=== PATIENT | male | born 1935 | race Caucasian/White ===

== ENCOUNTER 2016-07-29 14:21 | Observation (INO) | payer OTHER ==
[~2016-07-29] VITALS: Ht 167.6 cm; Wt 74.8 kg
[~2016-07-29 14:21] MED LIST: NAPROXEN500 M2 PO
[2016-07-29] MEDS ORDERED: LISINOPRIL20 M1 PO (14:29)
[2016-07-29] MEDS ORDERED: PANTOPRAZOLE SO40 M1 PO (14:30)
[2016-07-29] MEDS ORDERED: AMLODIPINE BESY10 M1 PO (14:30)
--- NOTE | 2016-07-29 14:30 | NUR ---
PT WHEELED FROM GI SUITE FOR CHEST PAIN. PT STATES PAIN STARTS ON RIGHT SIDE AND GOES ACROSS HIS CHEST TO HIS BACK. PT REPORTS PAIN 3/10. STATES IT IS "UNCOMFORTABLE". PT DENIES SHORTNESS OF BREATH. PT REPORTS PAIN IS WORSE AT NIGHT AFTER EATING DINNER.
--- NOTE | 2016-07-29 14:30 | NUR ---
DR HOFF AT BEDSIDE FOR EVAL
--- NOTE | 2016-07-29 14:31 | ED CARDIAC/CP/PALPITATIONS ---
History of Present Illness General Chief Complaint: Chest Pain Stated Complaint: CHEST PAIN Source: patient, family, dR. Chambers Exam Limitations: no limitations Allergies Coded Allergies: Penicillins (UNKNOWN 07/29/16) Reconcile Medications Amlodipine Besylate 10 MG TABLET 1 TAB PO DAILY HEART (Reported) Lisinopril 20 MG TABLET 1 TAB PO DAILY HEART (Reported) Pantoprazole Sodium 40 MG TABLET.DR 1 TAB PO DAILY GI (Reported) Triage Nurses Notes Reviewed? yes Onset: Abrupt Duration: day(s): (10) Timing: multiple episodes today Quality/Severity: moderate Location: RIGHT SIDED Radiation: LEFT CHEST Activities at Onset: none Aspirin Today: PLAVIX DAILY HPI: This is an 80-year-old male with history of hypertension, previous PE and acid reflux presents to the ER from the GI suite for evaluation of chest pain. Patient was due to have a colonoscopy and endoscopy today. He mentioned to them he has been having ongoing chest pain for the past 10 days and he was seen by Dr. Chambers. The decision was made secondary to inferior EKG changes to come to the ER for evaluation. Patient was due to have outpatient cardiology evaluation by Dr. Flores. (KAVYA SOTO,[facility]) Vital Signs & Intake/Output Vital Signs & Intake/Output Vital Signs Date Time Temp Pulse Resp B/P Pulse O2 O2 Flow FiO2 Ox Delivery Rate 07/30 0825 97.5 59 18 135/76 93 Room Air 07/29 2357 96.9 56 18 118/67 92 Room Air 07/29 2106 98.0 80 18 103/60 96 Room Air 07/29 1854 98.0 80 18 100/58 96 Room Air 07/29 1735 97.0 83 18 101/57 95 Room Air 07/29 1633 60 18 142/74 96 Room Air 07/29 1435 Room Air 07/29 1426 94.6 63 16 147/79 94 Room Air ED Intake and Output 07/30 0000 07/29 1200 Intake Total 750 Output Total Balance 750 Intake, IV 500 Intake, Oral 250 Number 0 Bowel Movements Patient 165 lb Weight Past History Medical History Any Pertinent Medical History? see below for history Neurological: NONE EENT: NONE Cardiovascular: hypertension Respiratory: NONE Gastrointestinal: NONE Hepatic: NONE Renal: NONE Musculoskeletal: NONE Psychiatric: NONE Endocrine: NONE Blood Disorders: NONE Cancer(s): NONE AUTHORIZER/Reproductive: NONE Surgical History Surgical History: non-contributory Psychosocial History What is your primary language Sami Family History Hx Contributory? No (OSIRIS HOFF MD) Review of Systems Review of Systems Constitutional: Denies: chills, fever. EENTM: Reports: no symptoms. Respiratory: Denies: cough, short of breath. Cardiovascular: Reports: chest pain. Denies: palpitations. GI: Denies: abdominal pain. Genitourinary: Reports: no symptoms. Musculoskeletal: Reports: no symptoms. Skin: Reports: no symptoms. Neurological/Psychological: Reports: no symptoms. Hematologic/Endocrine: Denies: bruising, bleeding, polyuria, polydipsia. Immunologic/Allergic: Denies: splenectomy. All Other Systems: Reviewed and Negative (OSIRIS HOFF MD) Physical Exam Physical Exam General Appearance: well developed/nourished, alert, awake, anxious Head: atraumatic, normal appearance Eyes: Bilateral: normal appearance, PERRL, EOMI. Ears, Nose, Throat: normal pharynx, hearing grossly normal Neck: normal inspection, supple, full range of motion Respiratory: normal breath sounds, chest non-tender, no respiratory distress Cardiovascular: regular rate/rhythm Peripheral Pulses: 2+ radial (R), 2+ radial (L) Gastrointestinal: normal bowel sounds, soft, non-tender Extremities: normal inspection, normal range of motion, no edema Neurologic/Psych: no motor/sensory deficits, awake, alert, oriented x 3 Skin: intact, normal color, warm/dry Core Measures ACS in differential dx? Yes Severe Sepsis Present: No Septic Shock Present: No (OSIRIS HOFF MD) Progress Differential Diagnosis: AMI, unstable angina Diagnostic Imaging: Viewed by Me: CT Scan. Discussed w/RAD: CT Scan. Initial ED EKG: NSR, abnormal Q waves (INFERIOR LEADS) Hand-Off Endorsed To: KRISTOPHER WALKER DO Endorsed Time: 1509 Pending: CT, consult (denisse) (OSIRIS HOFF MD) Plan of Care: Orders Procedure Date/time Status Nothing by Mouth 07/30 B Active ECHOCARDIOGRAM 07/30 0800 Active Change service to 07/30 0637 Active TROPONIN LEVEL 07/30 0500 Complete CBC WITHOUT DIFFERENTIAL 07/30 0500 Complete BASIC ELECTROLYTES PLUS BUN&CR 07/30 0500 Complete EKG 07/30 0500 Active TROPONIN LEVEL 07/29 2300 Complete EKG 07/29 2300 Active Pathway - chart 07/29 2252 Active Pathway - chart 07/29 2251 Active House Staff 07/29 2251 Active Patient Data 07/29 225 Active Code Status 07/29 2251 Active Teach/Educate 07/29 221 Active Nutritional Intake, Monitor 07/29 2213 Active Isolation 07/29 2213 Active Patient Care Conference 07/29 2213 Active Activity/Ambulation 07/29 2213 Active Lab Add-on Test 07/29 2207 Active Patient Data 07/[address] in observation 07/[address] in observation 07/29 1717 Active Vital Signs 07/29 171 Active Code Status 07/29 1717 Complete Intake & Output 07/29 1527 Active THYROID STIMULATING HORMONE 07/29 1439 Complete MAGNESIUM 07/29 1439 Complete GLYCOSYLATED HGB 07/29 1439 Active FREE T4 07/29 1439 Complete Telemetry/Social Work Assistant 07/29 1430 Active TROPONIN LEVEL 07/29 1430 Complete PARTIAL THROMBOPLASTIN TIME 07/29 1430 Complete PROTHROMBIN TIME 07/29 1430 Complete D-DIMER 07/29 1430 Complete COMPREHENSIVE METABOLIC PANEL 07/29 1430 Complete CBC WITHOUT DIFFERENTIAL 07/29 1430 Complete EKG 07/29 1430 Active VTE Mechanical Prophylaxis 07/29 UNK Active Telemetry/Social Work Assistant 07/29 UNK Active Current Medications Sig/Ham Start time Last Medication Dose Stop Time Status Admin Enoxaparin Sodium 40 MG DAILY 07/30 1015 UNVr (Lovenox) Lisinopril 20 MG DAILY 07/30 1000 CAN (Prinivil) Acetaminophen 650 MG Q6P PRN 07/29 2300 AC (Tylenol) Oxycodone/ 1 TAB Q6P PRN 07/29 2300 AC Acetaminophen (Percocet) Oxycodone/ 2 TAB Q6P PRN 07/29 2300 AC Acetaminophen (Percocet) Laboratory Tests 07/30/16 0458: Anion Gap 11, Estimated GFR > 60, BUN/Creatinine Ratio 22.5, Troponin I < 0.01, CBC w Diff NO MAN DIFF REQ, RBC 5.98, MCV 88.1, MCH 29.4, RDW 16.3 H, MPV 8.7, Gran % 66.8, Lymphocytes % 21.9, Monocytes % 7.4, Eosinophils % 3.1, Basophils % 0.8, Absolute Granulocytes 7.3 H, Absolute Lymphocytes 2.4, Absolute Monocytes 0.8 H, Absolute Eosinophils 0.3, Absolute Basophils 0.1, PUBS MCHC 33.4 07/29/16 2305: Troponin I < 0.01 07/29/16 1439: Hemoglobin A1c Pending 07/29/16 1439: Anion Gap 13, Estimated GFR > 60, BUN/Creatinine Ratio 23.8, Glucose 110 H, Calcium 8.9, Magnesium 2.2, Total Bilirubin 0.9, AST 17, ALT 28, Alkaline Phosphatase 106, Troponin I < 0.01, Total Protein 6.9, Albumin 3.9, Globulin 3.0 , Albumin/Globulin Ratio 1.3, TSH 1.040, Free T4 1.40, PT 13.1 H, INR 1.25 H, APTT 34, D-Dimer 254 H, CBC w Diff NO MAN DIFF REQ, RBC 6.20 H, MCV 87.3, MCH 29.4, RDW 16.0 H, MPV 8.1, Gran % 69.0, Lymphocytes % 21.3, Monocytes % 6.7, Eosinophils % 1.9, Basophils % 1.1, Absolute Granulocytes 8.1 H, Absolute Lymphocytes 2.5, Absolute Monocytes 0.8 H, Absolute Eosinophils 0.2, Absolute Basophils 0.1, PUBS MCHC 33.6 Departure Departure Disposition: STILL A PATIENT Condition: Stable Clinical Impression Primary Impression: Chest pain at rest Referrals: RICK DOWELL MD (PCP/Family) Departure Forms: Customer Survey General Discharge Information (OSIRIS HOFF MD) Departure Comments 07/29/16 4 PM PATIENT SIGNED OUT TO ME. Observation Note Spoke With: ANTHONY DOBBS MD Physician Advisor Notified: ZINA SOTO,CJ Maritnez Rationale for Observation: My rational for observation is as follows [serial troponins, serial EKG, inpatient stress test. Dr. Chambers was informed and will set up]. (KRISTOPHER WALKER DO) Critical Care Note Critical Care Note Critical Care Time: 30-74 min (OSIRIS HOFF MD)
[2016-07-29 14:50] LABS: ABSOLUTE BASOPHIL COUNT 0.1 /CUMM (0.0-0.2); ABSOLUTE EOSINOPHIL COUNT 0.2 /CUMM (0.0-0.7); ABSOLUTE GRANULOCYTE CT 8.1 /CUMM (1.4-6.5); ABSOLUTE LYMPH COUNT 2.5 /CUMM (1.2-3.4); ABSOLUTE MONOCYTE COUNT 0.8 /CUMM (0.10-0.60); BASOPHIL % 1.1 % (0.0-2.0); EOSINOPHIL % 1.9 % (0-5); HEMATOCRIT 54.1 % (42-52); MEAN CORPUSCULAR HGB 29.4 PG (27.0-31.0); MEAN CORPUSCULAR HGB CONC 33.6 G/DL (33.0-37.0); MEAN CORPUSCULAR VOLUME 87.3 FL (80.0-94.0); MEAN PLATELET VOLUME 8.1 FL (7.4-10.4); PLATELET COUNT 322 /CUMM (130-400); WHITE BLOOD CELL COUNT 11.7 /CUMM (4.8-10.8)
[2016-07-29 14:59] LABS: PT 13.1 SEC (9.4-12.5); PTT 34 SEC (25-37)
--- NOTE | 2016-07-29 15:09 | NUR ---
NS 500ML STARTED PER MAR
--- NOTE | 2016-07-29 15:35 | NUR ---
PT TO CAT SCAN
--- NOTE | 2016-07-29 15:58 | NUR ---
PT RETURNED FROM CAT SCAN
--- NOTE | 2016-07-29 16:19 | CT SCAN REPORT ---
EXAMINATION: CT ANGIOGRAM OF THE CHEST WITH AND WITHOUT CONTRAST (CT PULMONARY ANGIOGRAM FOR PE) CLINICAL INFORMATION: Chest pain for 10 days. History of lung nodules. COMPARISON: CT chest 04/24/2015. . CT of chest 11/23/2013 06/04/2013 TECHNIQUE: Prior to contrast administration, noncontrast localization images were obtained. Subsequently, multidetector volumetric imaging was performed from the thoracic inlet to below the diaphragms following the administration of 76 mL Optiray 320 intravenous contrast. No contrast reaction reported Sagittal, coronal, and MIP oblique sagittal reformatted images were obtained on the CT workstation, uploaded to PACS, and reviewed. Total exam dose-length product 422.04 mGy-cm FINDINGS: QUALITY OF STUDY/CONTRAST BOLUS: Satisfactory. PULMONARY ARTERIES: No central or segmental pulmonary emboli. THORACIC AORTA: No aneurysm or dissection. LUNG: No acute change of chest. No acute infiltrate. No bronchiectasis. No interstitial or reticular opacity. The central bronchial airways are open. Follow-up lung nodules: 1. There is a small peripheral groundglass opacity in the left upper lobe, image 133 (2). This is chronic unchanged since CAT scan of 06/14/2013. 2. There is a 7 mm area of focal pleural thickening of the minor fissure image 234 (2). This is unchanged since CAT scan of 06/14/2013. 3. 5 mm nodule at the left lung base at the posterior left costophrenic angle is stable image 332 (2). 4. Stable scarring at the anterior basal right middle lobe, axial image 279 (2). No new lung nodule. PLEURA: No pleural effusion or pneumothorax. MEDIASTINUM: Normal heart size. No pericardial effusion. No hilar or mediastinal lymphadenopathy. No evidence of septal bowing or right heart strain. CHEST WALL/AXILLA: No axillary or internal mammary lymphadenopathy. OSSEOUS STRUCTURES: Multilevel degenerative change of the spine with bridging osteophytes of the vertebrae. UPPER ABDOMEN: 2 small hypodense gallstones in the gallbladder. Image 59/59 (4). No reflux of contrast into the hepatic veins to suggest elevated right heart pressures. IMPRESSION: 1. No evidence of pulmonary embolism. 2. Stable lung nodules since CAT scan of 06/14/2013, benign finding. No further follow-up suggested for the nodules. No acute change of the chest. VTE: negative
--- NOTE | 2016-07-29 16:36 | NUR ---
MEDICATED PT WITH ASPIRIN 325MG PO
--- NOTE | 2016-07-29 17:30 | NUR ---
PT LYING ON STRETCHER WATCHING TV WITH AT BEDSIDE. PT WAS ADVISED THAT HE WOULD BE HELD OVER FOR OBSERVATION MARYELLEN
--- NOTE | 2016-07-29 18:44 | NUR ---
PT LYING ON STRETCHER IN [employer] SPIRITS, WATCHING TV. PT ASKING WHEN HE WOULD BE GOING UPSTAIRS. NO COMPLAINTS AT THIS TIME.
--- NOTE | 2016-07-29 18:53 | Cons- Cardiology ---
General Information and HPI Consulting Request Date of Consult: 07/29/16 Requested By: Justa Fuentes M.D. Harold Schwartz, M.D. Reason for Consult: Chest pain. Source of Information: patient, old records Exam Limitations: poor historian History of Present Illness: Mr. Gerard Dow is an 80-year-old male with a history of tobacco use, pulmonary nodules, previous pulmonary embolism treated with anticoagulation, hypertension, dyslipidemia, recently diagnosed "borderline" diabetes mellitus, previous chest pain syndrome with negative cardiac catheterization at [facility] September 2006, borderline concentric left ventricular hypertrophy, stage I diastolic dysfunction, hiatal hernia, gastroesophageal reflux disease, previous erosive esophagitis, who we were asked to evaluate and help manage by his party plan demonstrator (Frantz Mayfield M.D.) who had planned to perform an esophagogastroduodenoscopy/colonoscopy for change in bowel habits, until Mr. Dow related recent complaints of chest discomfort. Mr. Dow stated that approximately 3 weeks ago he began experiencing chest pain. This would start on the right side of his chest and radiate across to the left side of his chest and through to his back to the region of his left shoulder blade. This has been "constant", but was made worse when he would lay down and especially if he were to lay on his right side. It could reach "7-10/ 10" intensity and was associated with "hot flashes". He denied any associated diaphoresis, nausea, or shortness of breath, but does admit to shortness of breath on exertion which has been worse over the past year or so. He states that he has also been incontinent of stool of late with occasional episodes of bright red blood per rectum, which prompted the GI evaluation. Allergies/Medications Allergies: Coded Allergies: Penicillins (UNKNOWN 07/29/16) Home Med List: Amlodipine Besylate 10 MG TABLET 1 TAB PO DAILY HEART (Reported) Lisinopril 20 MG TABLET 1 TAB PO DAILY HEART (Reported) Pantoprazole Sodium 40 MG TABLET.DR 1 TAB PO DAILY GI (Reported) Current Medications: Current Medications Sig/Ham Start time Last Medication Dose Route Stop Time Status Admin Aspirin 0 .STK-MED ONE 07/29 1634 DC PO Aspirin 325 MG ONCE ONE 07/29 1615 DC 07/29 PO 07/29 1616 1636 Sodium Chloride 500 ML BOLUS ONE 07/29 1500 DC 07/29 IV 07/29 1559 1508 Review of Systems Review of Systems: A 14 point system review was obtained and was noncontributory, other than for the fact that he wears glasses, has nocturia, as above. Past History Travel History Traveled to [place] past 21 day No Medical History Neurological: NONE EENT: NONE Cardiovascular: hypertension, hyperlipidemia Respiratory: pulmonary embolism Gastrointestinal: GERD, hiatal hernia Hepatic: NONE Renal: NONE Musculoskeletal: osteoarthritis Psychiatric: NONE Endocrine: NONE Blood Disorders: NONE Cancer(s): NONE CHOIRMASTER/Reproductive: NONE Surgical History Surgical History: none (s/p negative cardiac catheteri), cystoscopy, hernia repair-inguinal, hemorrhoidectomy, polypectomy, TURP Family History Family History Reviewed? daughter s/p stroke at 52 years Psychosocial History Where Do You Live? Home Who Do You Live With? spouse Services at Home: None Primary Language: Amharic Smoking Status: Former Smoker ETOH Use: denies use Exam & Diagnostic Data Vital Signs and I&O Vital Signs Date Time Temp Pulse Resp B/P Pulse O2 O2 Flow FiO2 Ox Delivery Rate 07/29 1735 97.0 83 18 101/57 95 Room Air 07/29 1633 60 18 142/74 96 Room Air 07/29 1435 Room Air 07/29 1426 94.6 63 16 147/79 94 Room Air Intake & Output 07/29 1600 07/29 0800 07/29 0000 07/28 1600 07/28 0800 07/28 0000 Intake Total 500 Output Total Balance 500 Intake, IV 500 Patient 165 lb Weight Physical Exam: Well-developed, well-nourished elderly male in no acute distress. Vital signs: See above. HEENT: Normocephalic, atraumatic, EOMI, moist mucous membranes. Neck: No JVD, no bruits. Lungs: Clear to auscultation bilaterally. Heart: S1, S2 with no murmur, gallop, or rub appreciated. PMI fifth ICS at [facility]. Abdomen: Soft, nontender, positive bowel sounds. Extremities: No cyanosis, clubbing, or edema. Labs/Jethro Results: Laboratory Tests 07/29 1439 Chemistry Sodium (137 - 145 mmol/L) 139 Potassium (3.5 - 5.1 mmol/L) 4.3 Chloride (98 - 107 mmol/L) 101 Carbon Dioxide (22 - 30 mmol/L) 26 Anion Gap (5 - 16) 13 BUN (9 - 20 mg/dL) 19 Creatinine (0.7 - 1.2 mg/dL) 0.8 Estimated GFR (>60 ml/min) > 60 BUN/Creatinine Ratio (7 - 25 %) 23.8 Glucose (65 - 99 mg/dL) 110 H Calcium (8.4 - 10.2 mg/dL) 8.9 Total Bilirubin (0.2 - 1.3 mg/dL) 0.9 AST (17 - 59 U/L) 17 ALT (21 - 72 U/L) 28 Alkaline Phosphatase (< 127 U/L) 106 Troponin I (<0.11 ng/ml) < 0.01 Total Protein (6.3 - 8.2 g/dL) 6.9 Albumin (3.5 - 5.0 g/dL) 3.9 Globulin (1.9 - 4.2 gm/dL) 3.0 Albumin/Globulin Ratio (1.1 - 2.2 %) 1.3 Coagulation PT (9.4 - 12.5 SEC) 13.1 H INR (0.90 - 1.17) 1.25 H APTT (25 - 37 SEC) 34 D-Dimer (70 - 232 ng/ml) 254 H Hematology CBC w Diff NO MAN DIFF REQ WBC (4.8 - 10.8 /CUMM) 11.7 H RBC (4.70 - 6.10 /CUMM) 6.20 H Hgb (14.0 - 18.0 G/DL) 18.2 H Hct (42 - 52 %) 54.1 H MCV (80.0 - 94.0 FL) 87.3 MCH (27.0 - 31.0 PG) 29.4 RDW (11.5 - 14.5 %) 16.0 H Plt Count (130 - 400 /CUMM) 322 MPV (7.4 - 10.4 FL) 8.1 Gran % (42.2 - 75.2 %) 69.0 Lymphocytes % (20.5 - 51.1 %) 21.3 Monocytes % (1.7 - 9.3 %) 6.7 Eosinophils % (0 - 5 %) 1.9 Basophils % (0.0 - 2.0 %) 1.1 Absolute Granulocytes (1.4 - 6.5 /CUMM) 8.1 H Absolute Lymphocytes (1.2 - 3.4 /CUMM) 2.5 Absolute Monocytes (0.10 - 0.60 /CUMM) 0.8 H Absolute Eosinophils (0.0 - 0.7 /CUMM) 0.2 Absolute Basophils (0.0 - 0.2 /CUMM) 0.1 PUBS MCHC (33.0 - 37.0 G/DL) 33.6 Diagnostic Data EKG Results (07/29/2016) sinus rhythm, leftward axis, 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 CXR Results CT angiogram (07/29/2016) No evidence of pulmonary embolism. Stable lung nodules since CAT scan of 06/14/2013, benign finding. No further follow-up suggested for the nodules. No acute change of the chest. Assessment/Plan Assessment/Plan Mr. Dow is an elderly male with a recent change in bowel habits ( incontinence of stool/bright red blood per rectum) for which EGD/colonoscopy was planned, but who additionally related recent complaints of chest pain with mainly atypical features and dyspnea on exertion. I am more concerned about his dyspnea on exertion, which could represent an anginal equivalent in this male with a borderline risk equivalent and multiple risk factors for coronary artery disease then the chest discomfort, however, both complaints need to be addressed. Recommendations: * Admit to telemetry, serial troponins, follow-up electrocardiograms. * If rules out for myocardial necrosis and has no worrisome electrocardiographic changes, would schedule for imaging stress test in the a.m. * Would schedule for an echocardiogram to assess for left ventricular systolic/ diastolic function and to exclude segmental wall motion abnormalities given his abnormal electrocardiogram. * Agree with CT angiogram given his history of tobacco use, pulmonary nodules, and previous pulmonary embolism. * Continue his present antihypertensive regimen. * Check free T4, TSH, glycosylated hemoglobin A1c, magnesium, etc. * Consider statin therapy if no contraindication, given recent abnormal fasting lipid panel. * DVT prophylaxis. Further recommendations will follow, Thank you. Consult Acknowledgment - Thank you for your consult request.
--- NOTE | 2016-07-29 20:30 | NUR ---
PT AMBULATORY TO NURSE'S STATION TO USE TELEPHONE. PT CALM AND COOPERATIVE. PT RESTING COMFORTABLY IN ROOM.
--- NOTE | 2016-07-29 20:59 | History & Physical ---
JESSICA MALDONADO 07/29/162057: General Information and HPI MD Statement: I have seen and personally examined VERENICE DOW and documented this H&P. The patient is a 80 year old M who presented with a patient stated chief complaint of [chest pain, changes in EKG]. Source of Information: patient, old records Exam Limitations: poor historian History of Present Illness: Mr Dow is an 80-year-old gentleman with a PMH of HTN, GERD, previous PE, recent changes in bowel habit (incontinence, occasional bloody stools) and was scheduled for EGD/colonoscopy yesterday but was found to have an abnormal EKG. Of note, he reported a preceding 3 week duration of nonspecific right-sided chest pain with intermittent radiation towards the left chest, worsened with laying supine or on his right side and occasionally associated with diaphoresis. He did endorse a recent history of exertional dyspnea most pronounced with walking less than 10 blocks. Allergies/Medications Allergies: Coded Allergies: Penicillins (UNKNOWN 07/29/16) Home Med list Amlodipine Besylate 10 MG TABLET 1 TAB PO DAILY HEART (Reported) Lisinopril 20 MG TABLET 1 TAB PO DAILY HEART (Reported) Metoprolol Succinate 25 MG TAB 0.5 TAB PO DAILY ventricular ectopy Pantoprazole Sodium 40 MG TABLET.DR 1 TAB PO DAILY GI (Reported) Past History Travel History Traveled to [place] past 21 day No Medical History Neurological: NONE EENT: NONE Cardiovascular: hypertension, hyperlipidemia Respiratory: pulmonary embolism Gastrointestinal: GERD, hiatal hernia Hepatic: NONE Renal: NONE Musculoskeletal: osteoarthritis Psychiatric: NONE Endocrine: NONE Blood Disorders: NONE Cancer(s): NONE AGRICULTURE SCIENTIST/Reproductive: NONE Pneumonia Vaccine: 07/09/16 Influenza Vaccine: 07/09/16 Surgical History Surgical History: cystoscopy, hernia repair-inguinal, N hemorrhoidectomy polypectomy TURP (s/p negative cardiac catheteri) Past Family/Social History Psychosocial History Where do you live? Home Who Do You Live With? spouse Services at Home: None Primary Language: Faroese Smoking Status: Former Smoker ETOH Use: denies use Review of Systems Review of Systems Constitutional: Reports: see HPI. EENTM: Reports: no symptoms. Cardiovascular: Reports: see HPI. Respiratory: Reports: see HPI. GI: Reports: see HPI. Genitourinary: Reports: see HPI. Musculoskeletal: Reports: no symptoms. Exam & Diagnostic Data Last 24 Hrs of Vital Signs/I&O Vital Signs Date Time Temp Pulse Resp B/P Pulse O2 O2 Flow FiO2 Ox Delivery Rate 07/30 0825 97.5 59 18 135/76 93 Room Air 07/29 2357 96.9 56 18 118/67 92 Room Air 07/29 2106 98.0 80 18 103/60 96 Room Air 07/29 1854 98.0 80 18 100/58 96 Room Air 07/29 1735 97.0 83 18 101/57 95 Room Air 07/29 1633 60 18 142/74 96 Room Air 07/29 1435 Room Air 07/29 1426 94.6 63 16 147/79 94 Room Air Intake & Output 07/30 1600 07/30 0800 07/30 0000 Intake Total 450 250 Output Total 350 Balance 100 250 Intake, IV 450 0 Intake, Oral 0 250 Number 0 0 Bowel Movements Output, Urine 350 Patient 165 lb Weight Physical Exam General Appearance Alert, Oriented X3, Cooperative Skin No Rashes, No Breakdown HEENT PERRLA, EOMI, Mucous Membr. moist/pink Cardiovascular Regular Rate, Normal S1, Normal S2 Lungs Clear to Auscultation, Normal Air Movement Abdomen Normal Bowel Sounds, Soft, Mild discomfort ellicted on deep palpation of the abdomen Neurological Normal Speech, Normal Tone, Sensation Intact Extremities No Cyanosis, No Edema Last 24 Hrs of Labs/Jethro: Laboratory Tests 07/30/16 0458: Anion Gap 11, Estimated GFR > 60, BUN/Creatinine Ratio 22.5, Troponin I < 0.01, CBC w Diff NO MAN DIFF REQ, RBC 5.98, MCV 88.1, MCH 29.4, RDW 16.3 H, MPV 8.7, Gran % 66.8, Lymphocytes % 21.9, Monocytes % 7.4, Eosinophils % 3.1, Basophils % 0.8, Absolute Granulocytes 7.3 H, Absolute Lymphocytes 2.4, Absolute Monocytes 0.8 H, Absolute Eosinophils 0.3, Absolute Basophils 0.1, PUBS MCHC 33.4 07/29/16 2305: Troponin I < 0.01 07/29/16 1439: Hemoglobin A1c Pending 07/29/16 1439: Anion Gap 13, Estimated GFR > 60, BUN/Creatinine Ratio 23.8, Glucose 110 H, Calcium 8.9, Magnesium 2.2, Total Bilirubin 0.9, AST 17, ALT 28, Alkaline Phosphatase 106, Troponin I < 0.01, Total Protein 6.9, Albumin 3.9, Globulin 3.0 , Albumin/Globulin Ratio 1.3, TSH 1.040, Free T4 1.40, PT 13.1 H, INR 1.25 H, APTT 34, D-Dimer 254 H, CBC w Diff NO MAN DIFF REQ, RBC 6.20 H, MCV 87.3, MCH 29.4, RDW 16.0 H, MPV 8.1, Gran % 69.0, Lymphocytes % 21.3, Monocytes % 6.7, Eosinophils % 1.9, Basophils % 1.1, Absolute Granulocytes 8.1 H, Absolute Lymphocytes 2.5, Absolute Monocytes 0.8 H, Absolute Eosinophils 0.2, Absolute Basophils 0.1, PUBS MCHC 33.6 Diagnostic Data EKG Results (07/29/2016) sinus rhythm, leftward axis, 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 CXR Results CT angiogram (07/29/2016) No evidence of pulmonary embolism. Stable lung nodules since CAT scan of 06/14/2013, benign finding. No further follow-up suggested for the nodules. No acute change of the chest. Assessment/Plan Assessment: 80-year-old gentleman with a PMH of HTN, GERD, previous PE, recent changes in bowel habit (incontinence, occasional bloody stools) and was scheduled for EGD/ colonoscopy yesterday but was found to have an abnormal EKG. Of note, he reported a preceding 3 week duration of nonspecific right-sided chest pain with intermittent radiation towards the left chest, worsened with laying supine or on his right side and occasionally associated with diaphoresis. He did endorse a recent history of exertional dyspnea most pronounced with walking less than 10 blocks. VS on admission: BP 147/79, HR 66, RR 16, SPO2 94% on RA, T 94.6 Pertinent labs on admission: WBC 11.7, H&H 18.2/54.1, platelets 322, BUN/CR 19/ 0.8 INR: 1.25 D-dimer 254 EKG shows T-wave flattening in aVF in comparison to previous Problem list: 1. Unstable angina 2. Elevated H&H 3. Hypertension 4. GERD Plan: * Admit to telemetry for continuous cardiac monitoring. Serial EKG and troponins * Tentative plan for echo stress test in the morning. Will clarify with Dr. Chambers as to whether this would be a dobutamine or dipyridamole stress test * Elevated H&H likely secondary to hemoconcentration. Repeat H&H in 24 hours. We'll start patient on gentle hydration with normal saline * Discuss with cardiology utility for starting the patient on low-dose atorvastatin * Patient's blood pressure regimen at home: Lisinopril 20 mg, amlodipine 10 mg. Holding both in the setting of low BP. Discussed with cardiology utility of starting beta pj instead of amlodipine and decreasing the lisinopril dose * Continue with omeprazole * NPO at this time. Heart healthy diet * Lovenox 40 mg subcutaneous * DNR/DNI As Ranked By This Provider Problem List: 1. Chest pain at rest 2. Hypertension Core Measures/Miscellaneous Acute Coronary Syndrome ACS Diagnosis: No Cerebrovascular Accident CVA/TIA Diagnosis: No Congestive Heart Failure CHF Diagnosis: No Venous Thromboembolism VTE Risk Factors: Age > 40 VTE Prophylaxis Ordered Inpt: [facility] d/t: No contraindications No VTE Pharm Prophylaxis d/t: No contraindications VTE Diagnosis: No VTE Type: NONE VTE Confirmed by (Test): NONE Severe Sepsis Severe Sepsis Present: No Septic Shock Septic Shock Present: No Miscellaneous Documentation Attending Case Discussed With: LIAT SOTO,AYAD Floyd Primary Care Physician: RICK DOWELL MD Patient sees these Specialists Dr. Chambers (cardiology) Level of Patient Care: Telemetry Resident Review Statement Resident Statement: examined this patient, discussed with corporate strategy intern, agreed with corporate strategy intern, discussed with family, reviewed EMR data (avail), discussed with nursing , reviewed images SUZAN PIERCE 07/30/16 0257: Attending MD Review Statement Attending Statement Attending MD Statement: examined this patient, discuss w/resident/PA/MAIL SERVICE COORDINATOR, agreed w/resident/PA/MAIL SERVICE COORDINATOR, reviewed EMR data (avail), reviewed images, amended to note Attending Assessment/Plan: CC: Chest pain PMHx: HTN, BPH, incidental finding of pulmonary nodule, history of pulmonary embolism in past, HLD, ?Prediabetes Patient was planned to undergo EGD and colonoscopy today for abnormal bowel pattern (almost incontinence) and occasional blood in stool. There he was complaining of chest discomfort so was sent to ER. He did not undergo procedure. He says that he has been experiencing pain since last few weeks, present at rest, not increased with exertion, not related to breathing. At that starts from the right side and radiates to the left side of the chest. This pain is happening off and on and had been evaluated in the past with coronary cath. Currently patient complains of 6 out of 10 pain while lying down. He denies diaphoresis, nausea, vomiting, shortness of breath currently. No syncopal or presyncopal episode earlier. Patient complains of exertional dyspnea since long time. And was found to have some abnormal EKG outpatient and was scheduled to see cardiology as an outpatient. Patient states that he has been checking his pulse since his was found out to have A. fib, and at sometimes he finds his pulse is regular. But he denies any palpitations, presyncope, chest pain related to that. He did not take any antihypertensives today otherwise compliant with his medications. Vitals: Afebrile, BP 147/70 and at presentation dropped 200/58 at one time. Otherwise HR, RR, O2 saturation in acceptable range. On examination: A O 3, mild anxious, no severe distress. No JVD, no lymphadenopathy, neck supple. CVS : S1-S2, RRR. RS: Clear air entry bilaterally present. Abdomen: Soft, NT, ND, bowel sounds present. No pedal edema. No focal neurological deficit. No obvious skin rashes or lesions. Labs: WBC 11.7, hemoglobin 18.2, platelets 322. BMP, LFT, thyroid function in normal range. Troponin negative. His recent hemoglobin A1c done in July 17 was 5.7. EKG compared to previous one significant changes. CTA chest was obtained: No evidence of pulmonary embolism. Stable lung nodules since CAT scan of 06/14/2013, benign finding. A and P #1 chest pain: Appears her typical, admit to telemetry floor, serial EKG and troponin to rule out acute coronary syndrome. Appreciate cardiology consult. Patient received a dose of aspirin in ER. #2 dyspnea on exertion: With current chest pain, patient had long sitting standing history of smoking but does not have any wheezing on examination. Plan for stress test tomorrow. #3 history of hypertension: Patient underwent GI prep yesterday probably mildly dehydrated secondary to that this blood pressure running low normal side, hold amlodipine and lisinopril. Patient appears little hemoconcentrated Gentle hydration at 75 mL for 1 L. Resume antihypertensives tomorrow morning. #4 history of BPH continue tamsulosin. #5 DVT prophylaxis with Lovenox. Adequate pain control.
[2016-07-29 23:57] VITALS: BP 118/67
[2016-07-30 05:28] LABS: ABSOLUTE BASOPHIL COUNT 0.1 /CUMM (0.0-0.2); ABSOLUTE EOSINOPHIL COUNT 0.3 /CUMM (0.0-0.7); ABSOLUTE GRANULOCYTE CT 7.3 /CUMM (1.4-6.5); ABSOLUTE LYMPH COUNT 2.4 /CUMM (1.2-3.4); ABSOLUTE MONOCYTE COUNT 0.8 /CUMM (0.10-0.60); BASOPHIL % 0.8 % (0.0-2.0); EOSINOPHIL % 3.1 % (0-5); GRANULOCYTE % 66.8 % (42.2-75.2); HEMATOCRIT 52.7 % (42-52); MEAN CORPUSCULAR HGB 29.4 PG (27.0-31.0); MEAN CORPUSCULAR HGB CONC 33.4 G/DL (33.0-37.0); MEAN CORPUSCULAR VOLUME 88.1 FL (80.0-94.0); MEAN PLATELET VOLUME 8.7 FL (7.4-10.4); PLATELET COUNT 310 /CUMM (130-400); RBC DISTRIBUTION WIDTH 16.3 % (11.5-14.5); RED BLOOD CELL CT 5.98 /CUMM (4.70-6.10); WHITE BLOOD CELL COUNT 10.9 /CUMM (4.8-10.8)
--- NOTE | 2016-07-30 06:40 | PN- Housestaff ---
WIL MARTEL 07/30/16 0640: Subjective Follow-up For: -Chest pain Complaints: no complaints Subjective: I have seen and examined the patient today morning. He continues to c/o discomfort in the substernal area. He is NPO for nuclear stress test. Disposition as per results of nuclear test. Review of Systems Constitutional: Reports: see HPI. Denies: chills, diaphoresis, fever, malaise, weakness. EENTM: Denies: blurred vision, double vision, visual changes, eye pain, eye drainage. Cardiovascular: Reports: chest pain. Denies: edema, orthopena, palpitations, peripheral edema, syncope. Respiratory: Reports: short of breath. Denies: cough, hemoptysis, orthopnea, sputum production, stridor, wheezing. Gastrointestinal: Reports: bowel incontinence, nausea, changes in stool. Denies: abdominal pain, bloating. Genitourinary: Denies: discharge, dysuria, frequency, hematuria, hesitation. Musculoskeletal: Reports: no symptoms. Skin: Reports: no symptoms. Objective Last 24 Hrs of Vital Signs/I&O Vital Signs Date Time Temp Pulse Resp B/P Pulse O2 O2 Flow FiO2 Ox Delivery Rate 07/29 2357 96.9 56 18 118/67 92 Room Air 07/29 2106 98.0 80 18 103/60 96 Room Air 07/29 1854 98.0 80 18 100/58 96 Room Air 07/29 1735 97.0 83 18 101/57 95 Room Air 07/29 1633 60 18 142/74 96 Room Air 07/29 1435 Room Air 07/29 1426 94.6 63 16 147/79 94 Room Air Intake & Output 07/30 0800 07/30 0000 07/29 1600 Intake Total 450 250 500 Output Total 350 Balance 100 250 500 Intake, IV 450 0 500 Intake, Oral 0 250 Number 0 0 Bowel Movements Output, Urine 350 Patient 74.843 kg 74.843 kg Weight Physical Exam General Appearance: Alert, Oriented X3, Cooperative, No Acute Distress Skin: No Rashes, No Breakdown, No Significant Lesion HEENT: Atraumatic, PERRLA, EOMI Neck: Supple, No JVD, No thryomegaly Cardiovascular: Normal S1, Normal S2, No Murmurs Lungs: Clear to Auscultation, Normal Air Movement Abdomen: Normal Bowel Sounds, Soft, No Tenderness Extremities: No Clubbing, No Cyanosis, No Edema, Normal Pulses Vascular: Normal Pulses Current Medications: Current Medications Sig/Ham Start time Last Medication Dose Route Stop Time Status Admin Acetaminophen 650 MG Q6P PRN 07/29 2300 AC PO Aspirin 0 .STK-MED ONE 07/29 1634 DC PO Aspirin 325 MG ONCE ONE 07/29 1615 DC 07/29 PO 07/29 1616 1636 Lisinopril 20 MG DAILY 07/30 1000 CAN PO Omeprazole 40 MG DAILY AC 07/30 0700 AC 07/30 PO 0502 Oxycodone/ 1 TAB Q6P PRN 07/29 2300 AC Acetaminophen PO Oxycodone/ 2 TAB Q6P PRN 07/29 2300 AC Acetaminophen PO Sodium Chloride 1,000 ML Q13H 07/30 0030 AC 07/30 IV 07/30 1329 0030 Sodium Chloride 500 ML BOLUS ONE 07/29 1500 DC 07/29 IV 07/29 1559 1508 Last 24 Hrs of Lab/Jethro Results Last 24 Hrs of Labs/Mics: Laboratory Tests 07/30/16 0458: Anion Gap 11, Estimated GFR > 60, BUN/Creatinine Ratio 22.5, Troponin I < 0.01, CBC w Diff NO MAN DIFF REQ, RBC 5.98, MCV 88.1, MCH 29.4, RDW 16.3 H, MPV 8.7, Gran % 66.8, Lymphocytes % 21.9, Monocytes % 7.4, Eosinophils % 3.1, Basophils % 0.8, Absolute Granulocytes 7.3 H, Absolute Lymphocytes 2.4, Absolute Monocytes 0.8 H, Absolute Eosinophils 0.3, Absolute Basophils 0.1, PUBS MCHC 33.4 07/29/16 2305: Troponin I < 0.01 07/29/16 1439: Hemoglobin A1c Pending 07/29/16 1439: Anion Gap 13, Estimated GFR > 60, BUN/Creatinine Ratio 23.8, Glucose 110 H, Calcium 8.9, Magnesium 2.2, Total Bilirubin 0.9, AST 17, ALT 28, Alkaline Phosphatase 106, Troponin I < 0.01, Total Protein 6.9, Albumin 3.9, Globulin 3.0 , Albumin/Globulin Ratio 1.3, TSH 1.040, Free T4 1.40, PT 13.1 H, INR 1.25 H, APTT 34, D-Dimer 254 H, CBC w Diff NO MAN DIFF REQ, RBC 6.20 H, MCV 87.3, MCH 29.4, RDW 16.0 H, MPV 8.1, Gran % 69.0, Lymphocytes % 21.3, Monocytes % 6.7, Eosinophils % 1.9, Basophils % 1.1, Absolute Granulocytes 8.1 H, Absolute Lymphocytes 2.5, Absolute Monocytes 0.8 H, Absolute Eosinophils 0.2, Absolute Basophils 0.1, PUBS MCHC 33.6 Lines/Diet/Fluids Restraints: none Assessment/Plan Assessment: This is a 80-year-old gentleman with a PMH of HTN, GERD, previous PE, recent changes in bowel habit (incontinence, occasional bloody stools) and was scheduled for EGD/colonoscopy yesterday but was found to have an abnormal EKG.He has been reported a preceding 3 week duration of nonspecific right-sided chest pain with intermittent radiation towards the left chest, worsened with laying supine or on his right side and occasionally associated with diaphoresis and worse on exertion. Vitals on presentation : Afebrile, BP 200/58 >>> 147/70 . Labs: WBC 11.7, hemoglobin 18.2, platelets 322. BMP, LFT, thyroid function in normal range. Troponin negative. His recent hemoglobin A1c done in July 17 was 5.7. EKG compared to previous one had significant changes. CTA chest was obtained: No evidence of pulmonary embolism. Stable lung nodules since CAT scan of 06/14/2013, benign finding. Problem List alongwith assesment and plan : #1 chest pain ? angina - Rule out ACS Continue serial troponin and EKG, all three sets were negative PAtient was kept NPO for cardiac stress test. Nuclear dypyridamdole test was negative for any myocardial necrosis/ ischemia changes. PAtient had frequent ventricular ectopy for which he was started on low dose metoprolol 12.5 BID cardiology consult appreciated. PAtient is cleared to proceed with endoscopy / colonoscopy. Patient might also be started on statin ,however as per discussion with DR chambers, this will be considered on OP follow up visit. #2 H/o hiatal Hernia Continue PPI In absence of any cardiac etiology his CP most likely seems to realted ot GI cause. PAtient is cleared to follow up with GI as OP to proceed further with colonoscopy/ endoscopy. #3 History of hypertension: amlodipine and lisinopril were held, will resume on discharge. #4 history of BPH : continue tamsulosin. #5 DVT prophylaxis with Lovenox. Problem List: 1. Chest pain at rest 2. Hypertension Pain Ratin Pain Location: substernal Pain Goal: Remain pain free Pain Plan: tylenol for CP NG if needed Tomorrow's Labs & Rationales: patient ot be dc today Discharge Plan Discharge Disposition: home Stable for Discharge? Yes Anticipated Discharge (Day): today If Discharged Today/In 24 Hrs: CMR done AYAD JOSUE MD 07/30/16 1027: Attending MD Review Statement Attending Statement Attending MD Statement: examined this patient, discuss w/resident/PA/ADJUNCT POLITICAL SCIENCE INSTRUCTOR, agreed w/resident/PA/ADJUNCT POLITICAL SCIENCE INSTRUCTOR, reviewed EMR data (avail), discussed with nursing, discussed with case mgmt Attending Assessment/Plan: 80-year-old male with past medical history of hypertension, BPH and PE in the past. He was scheduled for endoscopy/colonoscopy for change in his bowel habits and he gave a history of chest pain. It's been going on and off for the past 3 weeks. He does have a history of tobacco in the past and takes Norvasc lisinopril and Protonix. I spoke to Dr. Chambers and he is ruled out with serial EKG and enzymes and the plan is a nuclear stress test today.
[2016-07-30 08:25] VITALS: BP 135/76
--- NOTE | 2016-07-30 11:58 | NUR ---
PER NUCLEAR RAD, PT TO GO BACK FOR FURTHER IMAGING AROUND 2:30, REQUESTING CLARIFICATION OF ORDER REGARDING OBSERVATION NEEDS. DR MATHUR PAGED AT [phone]
--- NOTE | 2016-07-30 12:07 | NUR ---
PER DR MARTEL, PT IS FINE TO BE UNMONITORED FOR TEST. NUCLEAR MEDICINE NOTIFIED. ORDER TO BE CHANGED BY
--- NOTE | 2016-07-30 13:45 | PN- Cardiology ---
Subjective Subjective: Continues to have chest discomfort similar to what he had been experiencing on admission. He has had 3 negative troponin I levels. He has had no significant electrocardiographic changes. Objective Vital Signs and I&Os Vital Signs Date Time Temp Pulse Resp B/P Pulse O2 O2 Flow FiO2 Ox Delivery Rate 07/30 08 97.5 59 18 135/76 93 Room Air 07/29 2357 96.9 56 18 118/67 92 Room Air 07/29 2106 98.0 80 18 103/60 96 Room Air 07/29 1854 98.0 80 18 100/58 96 Room Air 07/29 1735 97.0 83 18 101/57 95 Room Air 07/29 1633 60 18 142/74 96 Room Air 07/29 1435 Room Air 07/29 1426 94.6 63 16 147/79 94 Room Air Intake & Output 07/30 1600 07/30 0800 07/30 0000 07/29 1600 07/29 0800 07/29 0000 Intake Total 450 250 500 Output Total 350 Balance 100 250 500 Intake, IV 450 0 500 Intake, Oral 0 250 Number 0 0 Bowel Movements Output, Urine 350 Patient 165 lb 165 lb Weight Physical Exam: Well-developed, well-nourished elderly male in no acute distress. Vital signs: See above. HEENT: Normocephalic, atraumatic, EOMI, moist mucous membranes. Neck: No JVD, no bruits. Lungs: Clear to auscultation bilaterally. Heart: S1, S2 with no murmur, gallop, or rub appreciated. PMI fifth ICS at MCL. Abdomen: Soft, nontender, positive bowel sounds. Extremities: No cyanosis, clubbing, or edema. Current Medications: Current Medications Sig/Ham Start time Last Medication Dose Route Stop Time Status Admin Acetaminophen 650 MG Q6P PRN 07/29 2300 AC PO Aspirin 0 .STK-MED ONE 07/29 1634 DC PO Aspirin 325 MG ONCE ONE 07/29 1615 DC 07/29 PO 07/29 1616 1636 Enoxaparin Sodium 40 MG DAILY 07/30 1015 AC SC Lisinopril 20 MG DAILY 07/30 1000 CAN PO Omeprazole 40 MG DAILY AC 07/30 0700 AC 07/30 PO 0502 Oxycodone/ 1 TAB Q6P PRN 07/29 2300 AC Acetaminophen PO Oxycodone/ 2 TAB Q6P PRN 07/29 2300 AC Acetaminophen PO Sodium Chloride 1,000 ML Q13H 07/30 0030 DC 07/30 IV 07/30 1329 0030 Sodium Chloride 500 ML BOLUS ONE 07/29 1500 DC 07/29 IV 07/29 1559 1508 Results Last 48 Hrs of Labs/Mics: Laboratory Tests 07/30/16 0458: Anion Gap 11, Estimated GFR > 60, BUN/Creatinine Ratio 22.5, Troponin I < 0.01, CBC w Diff NO MAN DIFF REQ, RBC 5.98, MCV 88.1, MCH 29.4, RDW 16.3 H, MPV 8.7, Gran % 66.8, Lymphocytes % 21.9, Monocytes % 7.4, Eosinophils % 3.1, Basophils % 0.8, Absolute Granulocytes 7.3 H, Absolute Lymphocytes 2.4, Absolute Monocytes 0.8 H, Absolute Eosinophils 0.3, Absolute Basophils 0.1, PUBS MCHC 33.4 07/29/16 2305: Troponin I < 0.01 07/29/16 1439: Hemoglobin A1c Pending 07/29/16 1439: Anion Gap 13, Estimated GFR > 60, BUN/Creatinine Ratio 23.8, Glucose 110 H, Calcium 8.9, Magnesium 2.2, Total Bilirubin 0.9, AST 17, ALT 28, Alkaline Phosphatase 106, Troponin I < 0.01, Total Protein 6.9, Albumin 3.9, Globulin 3.0 , Albumin/Globulin Ratio 1.3, TSH 1.040, Free T4 1.40, PT 13.1 H, INR 1.25 H, APTT 34, D-Dimer 254 H, CBC w Diff NO MAN DIFF REQ, RBC 6.20 H, MCV 87.3, MCH 29.4, RDW 16.0 H, MPV 8.1, Gran % 69.0, Lymphocytes % 21.3, Monocytes % 6.7, Eosinophils % 1.9, Basophils % 1.1, Absolute Granulocytes 8.1 H, Absolute Lymphocytes 2.5, Absolute Monocytes 0.8 H, Absolute Eosinophils 0.2, Absolute Basophils 0.1, PUBS MCHC 33.6 Assessment/Plan Assessment/Plan Mr. Dow is an elderly male with a recent change in bowel habits ( incontinence of stool/bright red blood per rectum) for which EGD/colonoscopy was planned, but who additionally related recent complaints of chest pain with mainly atypical features and dyspnea on exertion. I remain more concerned about his dyspnea on exertion, which could represent an anginal equivalent in this male with a borderline risk equivalent and multiple risk factors for coronary artery disease then the chest discomfort, however, both complaints need to be addressed. Fortunately, Mr. Dow has ruled out for myocardial necrosis, has had no significant electrocardiographic changes, and had no chest discomfort or significant electrocardiographic abnormalities observed on his nuclear stress test performed this morning. He did have frequent ventricular and supraventricular ectopy on stress testing performed this morning. We are awaiting the results of his nuclear imaging. Should these be "negative" he is cleared for EGD/colonoscopy. Continue telemetry? Yes (Frequent ventricular ectopy)
[2016-07-30] MEDS ORDERED: METOPROLOL SUCC25 M1 PO (15:07)
--- NOTE | 2016-07-30 15:19 | Patient Discharge Instructions ---
Discharge Instructions General Discharge Information You were seen/treated for: chest pain You had these procedures: nuclear stress test Special Instructions: please follow up with your commercial painter, GI and PCP within one week of discharge. You are cleared to proceed with colonoscopy/endoscopy as per commercial painter Dr salcedo. Please continue taking new medications as prescribed. Also please do follow up with your commercial painter regarding adding a new medication for cholesterol ( statin) as outpatient. Diet Continue normal diet: No Recommended Diet: Heart Healthy Acute Coronary Syndrome Inclusion Criteria At DC or during hospital stay patient has or had the following: ACS DIAGNOSIS No Discharge Core Measures Meds if any: Prescribed or Continued at Discharge Meds if any: NOT Prescribed or Continued at Discharge Congestive Heart Failure Inclusion Criteria At DC or during hospital stay patient has or had the following: CHF DIAGNOSIS No Discharge Core Measures Meds if any: Prescribed or Continued at Discharge Meds if any: NOT Prescribed or Continued at Discharge Cerebrovascular accident Inclusion Criteria At DC or during hospital stay patient has or had the following: CVA/TIA Diagnosis No Discharge Core Measures Meds if any: Prescribed or Continued at Discharge Meds if any: NOT Prescribed or Continued at Discharge Venous thromboembolism Inclusion Criteria VTE Diagnosis No VTE Type NONE VTE Confirmed by (Test) NONE Discharge Core Measures - Per Current guidelines, there needs to be overlap - treatment for the first 5 days of Warfarin therapy. - If discharged on Warfarin prior to 5 days of - overlap therapy, the patient will need to be - assessed for post discharge needs including - *Post discharge parental anticoagulation - *Warfarin and/or parental anticoagulation education - *Follow up date to check INR post discharge At least 5 days overlap therapy as Inpatient No Meds if any: Prescribed or Continued at Discharge Note: Overlap Therapy is Warfarin and Anticoagulant Meds if any: NOT Prescribed or Continued at Discharge
--- NOTE | 2016-07-30 15:56 | NUR ---
FAMILY CONCERNED ABOUT IMPENDING WEATHER TOMORROW AND REQUESTING TO SPEAK WITH DR DELGADO AND DETERMINE DISCHARGE PLAN FOR THIS EVENING. DR DELGADO PAGED FOR UPDATE ON PLAN
--- NOTE | 2016-07-30 16:12 | NUCLEAR MEDICINE REPORT ---
EXERCISE STRESS AND RESTING SPECT MYOCARDIAL PERFUSION IMAGING STUDY WITH GATED SPECT IMAGES: CLINICAL INDICATION: Chest pain. PROCEDURE: Regional myocardial perfusion was assessed using a 1 day protocol. Stress images were obtained on 07/30/2016 following the intravenous administration of 18.6 mCi Tc 99m Myoview. Stress was performed using the standard Caleb protocol, with the patient reaching a peak heart rate of 87% maximal predicted heart rate. Rest images were obtained 07/30/2016 following the intravenous administration of 29.6 mCi Technetium 99m Myoview. Single photon emission tomographic (SPECT) images were obtained. SPECT images were acquired in a 64 x 64 matrix of 64 projections over 180 degrees. These were reconstructed into standard short axis, horizontal and vertical long axis cardiac projections. FINDINGS: The post stress images demonstrate the left ventricular chamber to be normal in size. There is homogeneous distribution of activity in the left ventricular myocardium with no regions of abnormally decreased activity noted. Mildly decreased activity in the inferior wall is likely due to attenuation by the adjacent diaphragm, and this can be visualized on review of the raw acquired projections. The resting images also demonstrate homogeneous distribution of activity in the left ventricular myocardium, and are not significantly changed from the post stress images. The stress images were obtained using a gated SPECT technique, which permits visualization of wall motion and calculation of the left ventricular ejection fraction. No left ventricular wall motion abnormalities are noted on the stress study. The calculated left ventricular ejection fraction is 59% on the stress study. No previous study is available for comparison. IMPRESSION: Normal exercise stress and resting myocardial perfusion study with normal left ventricular wall motion and ejection fraction.
--- NOTE | 2016-07-30 16:52 | Discharge Summary ---
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 This was mainly on the right side of his chest, radiating to the left arm and back, to the left shoulder blade, constant, worse on laying down, 7-10 out of 10 in intensity associated with hot flashes. He denied any PND, his illness, lightheadedness, palpitations. Off note he has been incontinent of stool recently with occasional episodes of bright red blood per rectum which i turn it him to follow-up with the GI doctor and the above plan for scope. Vitals on admission were blood pressure 147/79, her treated 66, respiratory rate of 16, SPO2 of 94% on room air, temperature 94.6. Pertinent labs admission white count of 11.7, H/H of 18.2/54.1, platelets of 322 , BUN/creatinine of 19/0.8, INR of 1.25, d-dimer of 254, EKG showed T-wave flattening in AVF compare to previous. Patient was admitted to the telemetry floor with cardiology on board for the treatment of following problems. #1 chest pain, questionable angina, ACS Ruled out, No ischemic change on nuclear stress test. Serial troponin and EKG were monitored, all 3 sets of troponin was found to be negative.Serial EKG did not show any acute changes. Patient was kept nothing by mouth and he underwent a nuclear cardiac stress test.Nuclear dipyridamole test was negative for any myocardial necrosis or ischemia changes. #2 Ventricular Ectopy Patient had frequent ventricular ectopy for which he was started on low dose of metoprolol 12.5 twice a day. Cardiology Dr. Salcedo was on board. After ruling out significant myocardial necrosis patient was cleared to proceed with endoscopy/colonoscopy as outpatient. He might also be started on statin as outpatient and will follow up with Dr. Salcedo. #3 History of hiatal hernia. Proton pump inhibitors were continued while in patient .He does have significant GI history of esophagitis, hiatal hernia, PPIs were continued on discharge as well. Patient was cleared to follow up with GI as outpatient to proceed further with colonoscopy/endoscopy. #4 history of hypertension On admission amlodipine and lisinopril were held, these were resumed on discharge. #5 history of BPH Tamsulosin was continued. VT prophylaxis with continued with Lovenox. Patient was full code. Mild pain pathway with Tylenol. Allergies: Coded Allergies: Penicillins (UNKNOWN 07/29/16) Significant Procedures: SERVICE DATE: 07/29/16 EXAM TYPE: CAT - CTA CHEST-PULMONARY EMBOLISM EXAMINATION: CT ANGIOGRAM OF THE CHEST WITH AND WITHOUT CONTRAST (CT PULMONARY ANGIOGRAM FOR PE) CLINICAL INFORMATION: Chest pain for 10 days. History of lung nodules. COMPARISON: CT chest 04/24/2015. . CT of chest 11/23/2013 06/04/2013 TECHNIQUE: Prior to contrast administration, noncontrast localization images were obtained. Subsequently, multidetector volumetric imaging was performed from the thoracic inlet to below the diaphragms following the administration of 76 mL Optiray 320 intravenous contrast. No contrast reaction reported Sagittal, coronal, and MIP oblique sagittal reformatted images were obtained on the CT workstation, uploaded to PACS, and reviewed. Total exam dose-length product 422.04 mGy-cm FINDINGS: QUALITY OF STUDY/CONTRAST BOLUS: Satisfactory. PULMONARY ARTERIES: No central or segmental pulmonary emboli. THORACIC AORTA: No aneurysm or dissection. LUNG: No acute change of chest. No acute infiltrate. No bronchiectasis. No interstitial or reticular opacity. The central bronchial airways are open. Follow-up lung nodules: 1. There is a small peripheral groundglass opacity in the left upper lobe, image 133 (2). This is chronic unchanged since CAT scan of 06/14/2013. 2. There is a 7 mm area of focal pleural thickening of the minor fissure image 234 (2). This is unchanged since CAT scan of 06/14/2013. 3. 5 mm nodule at the left lung base at the posterior left costophrenic angle is stable image 332 (2). 4. Stable scarring at the anterior basal right middle lobe, axial image 279 (2). No new lung nodule. PLEURA: No pleural effusion or pneumothorax. MEDIASTINUM: Normal heart size. No pericardial effusion. No hilar or mediastinal lymphadenopathy. No evidence of septal bowing or right heart strain. CHEST WALL/AXILLA: No axillary or internal mammary lymphadenopathy. OSSEOUS STRUCTURES: Multilevel degenerative change of the spine with bridging osteophytes of the vertebrae. UPPER ABDOMEN: 2 small hypodense gallstones in the gallbladder. Image 59/59 (4). No reflux of contrast into the hepatic veins to suggest elevated right heart pressures. IMPRESSION: 1. No evidence of pulmonary embolism. 2. Stable lung nodules since CAT scan of 06/14/2013, benign finding. No further follow-up suggested for the nodules. No acute change of the chest. SERVICE DATE: 07/30/16 EXAM TYPE: NUC - MYOCARDIAL PERFUSION IMAGING EXERCISE STRESS AND RESTING SPECT MYOCARDIAL PERFUSION IMAGING STUDY WITH GATED SPECT IMAGES: CLINICAL INDICATION: Chest pain. PROCEDURE: Regional myocardial perfusion was assessed using a 1 day protocol. Stress images were obtained on 07/30/2016 following the intravenous administration of 18.6 mCi Tc 99m Myoview. Stress was performed using the standard Caleb protocol, with the patient reaching a peak heart rate of 87% maximal predicted heart rate. Rest images were obtained 07/30/2016 following the intravenous administration of 29.6 mCi Technetium 99m Myoview. Single photon emission tomographic (SPECT) images were obtained. SPECT images were acquired in a 64 x 64 matrix of 64 projections over 180 degrees. These were reconstructed into standard short axis, horizontal and vertical long axis cardiac projections. FINDINGS: The post stress images demonstrate the left ventricular chamber to be normal in size. There is homogeneous distribution of activity in the left ventricular myocardium with no regions of abnormally decreased activity noted. Mildly decreased activity in the inferior wall is likely due to attenuation by the adjacent diaphragm, and this can be visualized on review of the raw acquired projections. The resting images also demonstrate homogeneous distribution of activity in the left ventricular myocardium, and are not significantly changed from the post stress images. The stress images were obtained using a gated SPECT technique, which permits visualization of wall motion and calculation of the left ventricular ejection fraction. No left ventricular wall motion abnormalities are noted on the stress study. The calculated left ventricular ejection fraction is 59% on the stress study. No previous study is available for comparison. IMPRESSION: Normal exercise stress and resting myocardial perfusion study with normal left ventricular wall motion and ejection fraction. Disposition Summary Disposition Principal Diagnosis: 1.Chest pain 2/2 to GI cause, ACS Ruled out 2 Cardiac nuclear stress test : WNL Additional Diagnosis: #2 H/o hiatal Hernia #3 History of hypertension #4 history of BPH Discharge Disposition: home or self care Discharge Instructions General Discharge Information Code Status: Full Code Patient's Diet: Heart healthy Patient's Activity: As tolerated Follow-Up Instructions/Appts: please follow up with your rib bender, GI and PCP within one week of discharge. You are cleared to proceed with colonoscopy/endoscopy as per rib bender Dr salcedo. Please continue taking new medications as prescribed. Also please do follow up with your rib bender regarding adding a new medication for cholesterol ( statin) as outpatient. Medications at Discharge Discharge Medications: Continue taking these medications: Lisinopril (Lisinopril) 20 MG TABLET 1 Tablet ORAL DAILY Qty = 90 Amlodipine Besylate (Amlodipine Besylate) 10 MG TABLET 1 Tablet ORAL DAILY Qty = 90 Pantoprazole Sodium (Pantoprazole Sodium) 40 MG TABLET.DR 1 Tablet ORAL DAILY Qty = 90 Start taking the following new medications: Metoprolol Succinate (Metoprolol Succinate) 25 MG TAB 0.5 Tablet ORAL DAILY Qty = 30 No Refills Copies To: DANNY SOTO,JUNIOR DOWELL MD,RICK Lee MD Review Statement Documenting Attending: LIAT SOTO,AYAD Floyd
[2016-07-30 18:04] VITALS: BP 119/63
== END 2016-07-30 18:40 ==
LOC: ERH 14:21 → ERHI 17:17
PROVIDERS: Emergency Medicine; Internal Medicine; ADMIT Internal Medicine
DX: R07.9 Chest pain, unspecified (principal); I10 Essential (primary) hypertension; K21.9 Gastro-esophageal reflux disease without esophagitis; Z86.711 Personal history of pulmonary embolism; E78.5 Hyperlipidemia, unspecified; N40.0 Benign prostatic hyperplasia without lower urinary tract symptoms; I49.3 Ventricular premature depolarization
CPT/HCPCS: 6090; 78452; 82436; 93005; 93010; 93016; 93017; 96360; 96361; A9502; G0378; J1650; J7040

== ENCOUNTER 2017-09-18 08:59 | Observation (INO) | payer OTHER ==
[~2017-09-18] VITALS: Ht 167.6 cm; Wt 72.6 kg
[~2017-09-18 08:59] MED LIST changes: +AMLODIPINE BESY10 M1 PO; +LISINOPRIL20 M1 PO; +METOPROLOL SUCC25 M1 PO; +PANTOPRAZOLE SO40 M1 PO
--- NOTE | 2017-09-18 09:07 | ED GENERAL ADULT ---
History of Present Illness General Chief Complaint: Chest Pain Stated Complaint: BIBA CHEST PAIN Allergies Coded Allergies: Penicillins (UNKNOWN 07/29/16) Reconcile Medications Amlodipine Besylate 10 MG TABLET 1 TAB PO DAILY HEART (Reported) Lisinopril 20 MG TABLET 1 TAB PO DAILY HEART (Reported) Metoprolol Succinate 25 MG TAB 1 TAB PO DAILY HTN (Reported) Pantoprazole Sodium 40 MG TABLET.DR 1 TAB PO DAILY GI (Reported) Onset: Abrupt Duration: hour(s): Timing: recent history HPI: 09/18/17 82-year-old man presents to the emergency department complaining of crushing chest pain. He made a fist and said that it was a squeezing type pain. He says he became diaphoretic and short of breath. The onset of the symptoms was abrupt , the duration was just this morning, the severity was significant as his symptoms required him to come to the emergency department for care. He was seen and evaluated in the ED by Dr. Astudillo. We are in agreement that the patient needs to be to place inpatient observation for serial troponins and likely inpatient echocardiogram. (Deonte ARNOLD,Norman Javed) General Source: patient Exam Limitations: no limitations Vital Signs & Intake/Output Vital Signs & Intake/Output Vital Signs Date Time Temp Pulse Resp B/P B/P Pulse O2 O2 Flow FiO2 Mean Ox Delivery Rate 09/18 1421 60 20 122/60 94 Room Air 09/18 1416 98.1 94 20 130/66 94 Room Air 09/18 1400 60 122/60 09/18 1400 60 122/60 09/18 1400 60 122/60 09/18 1309 98.1 60 17 138/81 97 Nasal 2.0L Cannula 09/18 1221 96 Room Air 09/18 1045 97.9 62 18 119/66 97 Room Air 09/18 0919 97 Room Air 09/18 0911 97.4 58 18 121/63 96 Nasal 2.0L Cannula Triage Nurses Notes Reviewed? yes HPI: 82yoM w/ hx of HTN, GERD, chest pain (w/ negative extensive work up per patient) and BPH, p/w CP. Describes pain as 10/10 chest tighness that started at 8:15AM while watching a movie. Nothing relieved or exacerbated the patient. Pain was associated w/ SOB and diaphoresis. His called the ambulance that recommended ASA, which he chewed, wioth some relief. EMS gave him 1 dose of sublingual nitro which took his pain away. Currently, pain is 5/10, without any other sx. He has had such chest pain before in 5ya and was told had to do with his lungs He denies any fevers, chills, N/V, radiation of pain except for R flank pain for the past 1-2mths that has been affecting his position of sleeping. phmx - HTN, GERD, BPH shx - L shoulder repair 2mths ago meds - he does not know allx- PCN smoke - 200cigars a mth from 12yo to 74yo; no drugs hx; last alcohol 35yo (Vaibhav-Yesenia STUDENTThomas) Past History Travel History Traveled to [place] past 21 day No Medical History Neurological: NONE EENT: NONE Cardiovascular: hypertension, hyperlipidemia Respiratory: pulmonary embolism Gastrointestinal: GERD, hiatal hernia Hepatic: NONE Renal: NONE Musculoskeletal: osteoarthritis Psychiatric: NONE Endocrine: NONE Blood Disorders: NONE Cancer(s): NONE INCOMING INSPECTOR/Reproductive: NONE History of MRSA: No History of VRE: No History of CDIFF: No Surgical History Surgical History: cystoscopy, hernia repair-inguinal, N hemorrhoidectomy polypectomy TURP (s/p negative cardiac catheteri) Psychosocial History Services at Home None What is your primary language Vietnamese Tobacco Use: Quit >30 days ago (Norman Walker DO) Travel History Traveled to [place] past 21 day No Medical History Any Pertinent Medical History? see below for history Family History Hx Contributory? Yes (Nic STUDENTThomas) Review of Systems Review of Systems EENTM: Denies: visual changes. Respiratory: Denies: short of breath. Cardiovascular: Reports: chest pain. GI: Denies: abdominal pain. Genitourinary: Reports: no symptoms. Musculoskeletal: Reports: no symptoms. Skin: Denies: rash. Neurological/Psychological: Reports: no symptoms. Hematologic/Endocrine: Reports: no symptoms. Immunologic/Allergic: Reports: no symptoms. (Norman Walker DO) Review of Systems Constitutional: Reports: see HPI. (Nic STUDENTThomas) Physical Exam Physical Exam Head: atraumatic, normal appearance Eyes: Bilateral: normal appearance, PERRL, EOMI. Ears, Nose, Throat: normal pharynx, normal ENT inspection Neck: normal inspection, supple Respiratory: normal breath sounds, chest non-tender, no respiratory distress Cardiovascular: regular rate/rhythm Peripheral Pulses: 4+ radial (R), 4+ radial (L) Gastrointestinal: soft, non-tender Back: normal range of motion Extremities: pedal edema Neurologic/Psych: no motor/sensory deficits, awake, alert, oriented x 3 Skin: intact, normal color, warm/dry (Norman Walker DO) Physical Exam General Appearance: well developed/nourished, no apparent distress, alert, awake , comfortable Core Measures ACS in differential dx? Yes CVA/TIA Diagnosis: No Sepsis Present: No Sepsis Focused Exam Completed? No (Opare-Yesenia STUDENT,Thomas) Progress Differential Diagnoses I considered the following diagnoses in my evaluation of the patient: Initial ED EKG: NSR Prior EKG: unchanged (Norman Walker DO) Differential Diagnoses I considered the following diagnoses in my evaluation of the patient: Including but not limited to [ACS, PNA, GERD, Aortic aneurysm, chest trauma, PE] Plan of Care: Orders Procedure Date/time Status Heart Healthy Diet 09/18 D Active TROPONIN LEVEL 09/18 1800 Active EKG 09/18 1800 Active Vital Signs 09/18 1433 Active Teach/Educate 09/18 1433 Active Pain Treatment and Response 09/18 1433 Active Nutritional Intake, Monitor 09/18 1433 Active Isolation 09/18 1433 Active Intake & Output 09/18 1433 Active Patient Care Conference 09/18 1433 Active Activity/Ambulation 09/18 1433 Active Vital Signs 09/18 1411 Complete Teach/Educate 09/18 1411 Complete Pain Treatment and Response 09/18 1411 Complete Nutritional Intake, Monitor 09/18 1411 Complete Isolation 09/18 1411 Complete Intake & Output 09/18 1411 Complete Patient Care Conference 09/18 1411 Complete Activity/Ambulation 09/18 1411 Complete TROPONIN LEVEL 09/18 1300 Complete EKG 09/18 1300 Active Pathway - chart 09/18 1239 Active House Staff 09/18 1239 Active Patient Data 09/18 1239 Active Code Status 09/[address] in observation 09/18 1200 Active ED Holding Orders 09/18 1200 Active Patient Data 09/18 1200 Active Vital Signs 09/18 1200 Active Code Status 09/18 1200 Complete Add-on Test (ER Only) 09/18 0943 Active TROPONIN LEVEL 09/18 936 Complete D-DIMER 09/18 936 Complete COMPREHENSIVE METABOLIC PANEL 09/18 936 Complete CBC WITHOUT DIFFERENTIAL 09/18 936 Complete Intake & Output 09/18 09 Complete EKG 09/18 09 Active VTE Mechanical Prophylaxis 09/18 UNK Active Telemetry/Manager Actuarial 09/18 UNK Complete Nursing Misc 09/18 UNK Active Current Medications Sig/Ham Start time Last Medication Dose Stop Time Status Admin Aspirin 81 MG DAILY 09/19 1000 AC (Aspirin) Omeprazole 20 MG DAILY AC 09/19 0700 AC (Prilosec) Amlodipine Besylate 10 MG DAILY 09/18 1244 AC 09/18 (Norvasc) 1400 Lisinopril 20 MG DAILY 09/18 1244 AC 09/18 (Prinivil) 1400 Metoprolol Succinate 25 MG DAILY 09/18 1244 AC 09/18 (Toprol XL) 1400 Laboratory Tests 09/18/17 1812: Troponin I Pending 09/18/17 1445: Troponin I < 0.01 09/18/17 0937: Anion Gap 10, Estimated GFR > 60, BUN/Creatinine Ratio 32.9 H, Glucose 91, Calcium 9.0, Total Bilirubin 0.7, AST 16 L, ALT 27, Alkaline Phosphatase 105, Troponin I < 0.01, Total Protein 6.6, Albumin 3.8, Globulin 2.8, Albumin/ Globulin Ratio 1.4, D-Dimer High Sensitivty 284 H, CBC w Diff NO MAN DIFF REQ, RBC 5.49, MCV 88.5, MCH 29.8, MCHC 33.7, RDW 15.9 H, MPV 8.1, Gran % 70.8, Lymphocytes % 20.3 L, Monocytes % 6.1, Eosinophils % 2.7, Basophils % 0.1, Absolute Granulocytes 8.5 H, Absolute Lymphocytes 2.4, Absolute Monocytes 0.7 H, Absolute Eosinophils 0.3, Absolute Basophils 0 EKG, trops, CBC, CMP with CXR [place] but he PERC'd in and so D-Dimer ordered. 11:17AM D-dimer elevated but normal for age adjustment Labs reassuring Trops negative. Patient has had an extensive work up w/ stent placement. However, due to patient 's age and HEART score of 5, will keep patient for observation. GI cocktail to be ordered to rule out GERD. Initial ED EKG: normal intervals, normal p-waves, Bradycardia Prior EKG: unchanged (Opare-Yesenia STUDENT,Thomas) Departure Departure Disposition: STILL A PATIENT Condition: Stable Clinical Impression Primary Impression: Chest pain Referrals: Bret SOTO,Howard Thompson (PCP/Family) Departure Forms: Customer Survey General Discharge Information Observation Note Spoke With: Molina SOTO,Ирина Ruano Physician Advisor Notified: NORMAN WALKER DO Place Patient In: Non-ED OBS Care Area Rationale for Observation: My rational for observation is as follows [the patient needs serial troponins, cardiology consultation]. (Norman Walker DO) Critical Care Note Critical Care Note Critical Care Time: 30-74 min (Norman Walker DO)
[2017-09-18 10:00] LABS: ABSOLUTE BASOPHIL COUNT 0 /CUMM (0.0-0.2); ABSOLUTE EOSINOPHIL COUNT 0.3 /CUMM (0.0-0.7); ABSOLUTE GRANULOCYTE CT 8.5 /CUMM (1.4-6.5); ABSOLUTE LYMPH COUNT 2.4 /CUMM (1.2-3.4); ABSOLUTE MONOCYTE COUNT 0.7 /CUMM (0.10-0.60); BASOPHIL % 0.1 % (0.0-2.0); EOSINOPHIL % 2.7 % (0-5); GRANULOCYTE % 70.8 % (42.2-75.2); HEMATOCRIT 48.6 % (42-52); MEAN CORPUSCULAR HGB 29.8 PG (27.0-31.0); MEAN CORPUSCULAR HGB CONC 33.7 G/DL (33.0-37.0); MEAN CORPUSCULAR VOLUME 88.5 FL (80.0-94.0); MEAN PLATELET VOLUME 8.1 FL (7.4-10.4); PLATELET COUNT 336 /CUMM (130-400); RBC DISTRIBUTION WIDTH 15.9 % (11.5-14.5); RED BLOOD CELL CT 5.49 /CUMM (4.70-6.10); WHITE BLOOD CELL COUNT 11.9 /CUMM (4.8-10.8)
--- NOTE | 2017-09-18 11:05 | RADIOLOGY REPORT ---
EXAMINATION: XR PORTABLE CHEST CLINICAL INFORMATION: Chest pain. COMPARISON: CT chest 04/24/2015. TECHNIQUE: Portable frontal view of the chest was obtained. FINDINGS: There is mild cardiomegaly with normal pulmonary vascularity. Both lungs are expanded and clear. No gross bony abnormality seen. IMPRESSION: Mild cardiomegaly. No acute pulmonary process seen.
--- NOTE | 2017-09-18 12:36 | History & Physical ---
Anayeli Kemp MD 09/18/17 1213: General Information and HPI MD Statement: I have seen and personally examined VERENICE GRANADO and documented this H&P. The patient is a 82 year old M who presented with a patient stated chief complaint of [chest pain]. Source of Information: patient, old records Exam Limitations: no limitations History of Present Illness: Patient is an 82-year-old male before from home for evaluation of chest pain. Chest pain was started this morning, when he come back to bed after urination. It was crushing/ squeezing in nature, 10/10 was associated with diaphoresis, shortness of breath. It was located across the chest.He was given 325 mg of aspirin at home and pain decreased to 8/10. called 911, and they advised for one more chewable aspiri.During transport, he was given nitroglycerine and that relieved pain to 5/10. At the time to admission to ED he was having no pain. During examination he was complaining of slight discomfort in epigastrium. According to him he shoveled a week ago, and afterwards he was very exhausted but recovered and couple of hours. He was having right-sided, chest pain since last 1 month and was well evaluated by orthopedic doctor, and x-ray was also negative for any fractures. Of note patient is having extensive history of the chest pain. According to him he was having history of coronary angiogram in 2006 and 5 years ago probably 2012. It was done by Dr. Chambers and according to him he was told that he had mild obstruction when of the artery that does not require any treatment. He also had nuclear stress test in 2016 but that was not showing any evidence of regional wall motion abnormality. 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 Quit alcohol 35 years ago. Currently denies any alcohol and drug abuse. Surgical history-history of inguinal hernia repair, history of TURP, right knee arthroplasty, left shoulder arthroplasty Allergies/Medications Allergies: Coded Allergies: Penicillins (UNKNOWN 07/29/16) Observation Initial Note - I have personally examined VERENICE GRANADO on 09/18/17 at 1422. The disposition of VERENICE GRANADO is uncertain at this time and before a determination can be made, he requires a period of observation for the following reasons [chest pain] Past History Travel History Traveled to [place] past 21 day No Medical History Neurological: NONE EENT: NONE Cardiovascular: hypertension, hyperlipidemia Respiratory: pulmonary embolism Gastrointestinal: GERD, hiatal hernia Hepatic: NONE Renal: NONE Musculoskeletal: osteoarthritis Psychiatric: NONE Endocrine: NONE Blood Disorders: NONE Cancer(s): NONE MANAGER SERVICES/Reproductive: NONE History of MRSA: No History of VRE: No History of CDIFF: No Surgical History Surgical History: cystoscopy, hernia repair-inguinal, N hemorrhoidectomy polypectomy TURP (s/p negative cardiac catheteri) Past Family/Social History Psychosocial History Who Do You Live With? spouse Services at Home: None Primary Language: Pashto Review of Systems Review of Systems Constitutional: Denies: no symptoms. Exam & Diagnostic Data Last 24 Hrs of Vital Signs/I&O Vital Signs Date Time Temp Pulse Resp B/P B/P Pulse O2 O2 Flow FiO2 Mean Ox Delivery Rate 09/18 1309 98.1 60 17 138/81 97 Nasal 2.0L Cannula 09/18 1221 96 Room Air 09/18 1045 97.9 62 18 119/66 97 Room Air 09/18 0919 97 Room Air 09/18 0911 97.4 58 18 121/63 96 Nasal 2.0L Cannula Intake & Output 09/18 1600 09/18 0800 09/18 0000 Intake Total Output Total Balance Patient 72.575 kg Weight Weight Reported by Patient Measurement Method Physical Exam General Appearance Alert, Oriented X3, Cooperative, No Acute Distress Skin No Rashes, No Breakdown, No Significant Lesion Cardiovascular Normal S1, Normal S2 Lungs Clear to Auscultation, Normal Air Movement Abdomen Soft, epigastric tenderness Neurological Normal Gait, Normal Speech, Strength at 5/5 X4 Ext Extremities No Clubbing, No Cyanosis, No Edema Vascular Normal Pulses, Pulses Symmetrical Last 24 Hrs of Labs/Jethro: Laboratory Tests 09/18/17 0937: Anion Gap 10, Estimated GFR > 60, BUN/Creatinine Ratio 32.9 H, Glucose 91, Calcium 9.0, Total Bilirubin 0.7, AST 16 L, ALT 27, Alkaline Phosphatase 105, Troponin I < 0.01, Total Protein 6.6, Albumin 3.8, Globulin 2.8, Albumin/ Globulin Ratio 1.4, D-Dimer High Sensitivty 284 H, CBC w Diff NO MAN DIFF REQ, RBC 5.49, MCV 88.5, MCH 29.8, MCHC 33.7, RDW 15.9 H, MPV 8.1, Gran % 70.8, Lymphocytes % 20.3 L, Monocytes % 6.1, Eosinophils % 2.7, Basophils % 0.1, Absolute Granulocytes 8.5 H, Absolute Lymphocytes 2.4, Absolute Monocytes 0.7 H, Absolute Eosinophils 0.3, Absolute Basophils 0 Assessment/Plan Assessment: Patient is an 82-year-old male before from home for evaluation of chest pain. ED course -temperature 97.4, pulse 58, respiratory 18, blood pressure 121/63, SPO2 96% on 2 L of nasal cannula initially followed by 97% on room air. Blood workup showed WBC 11.9, hemoglobin 16.4, hematocrit 48.6, platelet count 336, granulocyte 70.8, serum sodium 142, potassium 4.6, anion gap 10, BUN 23, creatinine 0.7, glucose 91, total bilirubin 0.7, AST 16, ALT 27, alkaline phosphatase 104, troponin I 0.01, d-dimer 284, albumin 3.8. Chest x-ray showed mild cardiomegaly without any acute cardiopulmonary process. EKG showed -heart rate 58, normal sinus rhythm, poor R-wave progression, small QRS complex, T-wave inversion in lead III, QRS complex in V3 and V1. Assessment and plan - Patient is an 82-year-old male with multiple coronary artery disease risk factors including age, history of smoking, had extensive coronary artery disease workup in the past without any evidence of coronary artery disease presented with acute onset of chest pain. The differential, coronary artery disease, PE, dissection of aorta. His d-dimer was 284 and chest x-ray was not showing any evidence of lung involvement. It ruled out PE. We need to observe the patient to telemetry floor to rule out coronary disease.His blood pressure and right arm is, and left arm is. He does not seems like he had dissection. Acute onset of chest pain-to rule out coronary artery disease - * We will observe the patient to telemetry floor * We will do serial troponins and EKG * We will follow cardiology recommendation Gastroesophageal reflux disease -history of hiatal hernia * Will start patient on omeprazole 20 mg once a day * Patient was already given GI cocktail without any benefit Hypertension * We will continue his home medications include amlodipine, metoprolol, lisinopril * Watch for bradycardia Diet -heart healthy diet CODE STATUS -full code DVT prophylaxis-ANTHONY/heparin As Ranked By This Provider Problem List: 1. Chest pain Core Measures/Misc (04/11) Acute Coronary Syndrome ACS Diagnosis: No Congestive Heart Failure Congestive Heart Failure Diagnosis No Cerebrovascular Accident CVA/TIA Diagnosis: No VTE (View Protocol) VTE Risk Factors Age>40 No Mechanical VTE Prophylaxis d/t N/A MechProphylax Ordered No VTE Pharm Prophylaxis d/t NA PharmProphylax ordered Sepsis (View protocol) Sepsis Present: No Ирина Auguste 09/18/17 1532: General Information and HPI Allergies/Medications Home Med list Amlodipine Besylate 10 MG TABLET 1 TAB PO DAILY HEART (Reported) Aspirin (Aspirin*) 81 MG TAB.CHEW 1 TAB PO DAILY CAD Lisinopril 20 MG TABLET 1 TAB PO DAILY HEART (Reported) Metoprolol Succinate 25 MG TAB 1 TAB PO DAILY HTN (Reported) Pantoprazole Sodium 40 MG TABLET.DR 1 TAB PO DAILY GI (Reported) Attending MD Review Statement Attending Statement Attending MD Statement: examined this patient, discuss w/resident/PA/MEDICAL DATA ENTRY CLERK, agreed w/resident/PA/MEDICAL DATA ENTRY CLERK, discussed with family, reviewed EMR data (avail) Attending Assessment/Plan: Pt seen and examined at bedside. 82 yr old male with pmh of HTN, HLD and PE is being placed in observation status for chest pain evaluation. Pt started having chest pain this am 10/10 in the substernal area and epigastric area which was squeezing in nature and radiating to back. Pt had some relief with aspirin and nitroglycerin given prior to arrival to ER by EMS and at home. Pt has negative cardiac enzymes in ER and EKG was ok. Pt had a stress test done a year ago which was wnl. Plan- Observe on telemetry, serial cardiac enzymes EKG in am If stable plan is to dc him home in am. d/w pt and pts at bedside the care plan. appreciated cardiology input.
--- NOTE | 2017-09-18 13:08 | Cons- Cardiology ---
General Information and HPI Consulting Request Date of Consult: 09/18/17 Requested By: Ирина Auguste MD Reason for Consult: Chest pain syndrome Source of Information: patient, family Exam Limitations: no limitations History of Present Illness: The patient is a very pleasant 82-year-old male. 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 I am covering for him today. The patient is admitted to the hospital as a 23 hour observation via the emergency him for chest pain syndrome. The patient's symptoms began this morning when he was trying to get out of bed. He describes this as a severe crushing chest pain with associated diaphoresis pallor and shortness of breath. It was a localized to his sternal area. There was no significant radiation. He was ultimately given a sublingual nitroglycerin and 325 mg of aspirin with partial relief of the symptoms, however, at the time he was seen by me he continued to have 6/10 chest discomfort. The patient notes the has had a relatively complete cardiac and GI evaluation in the past. He does have a history of hiatal hernia. He reports having had a cardiac catheterization several years ago and a recent nuclear stress test at the end of 2016 which were reportedly normal. Those records are not available to me at the moment. Allergies/Medications Allergies: Coded Allergies: Penicillins (UNKNOWN 07/29/16) Home Med List: Amlodipine Besylate 10 MG TABLET 1 TAB PO DAILY HEART (Reported) Lisinopril 20 MG TABLET 1 TAB PO DAILY HEART (Reported) Metoprolol Succinate 25 MG TAB 1 TAB PO DAILY HTN (Reported) Pantoprazole Sodium 40 MG TABLET. 1 TAB PO DAILY GI (Reported) Current Medications: Current Medications Sig/Ham Start time Last Medication Dose Route Stop Time Status Admin Amlodipine Besylate 10 MG DAILY 09/18 1244 AC PO Lisinopril 20 MG DAILY 09/18 1244 AC PO Metoprolol Succinate 25 MG DAILY 09/18 1244 AC PO Omeprazole 20 MG DAILY AC 09/19 0700 AC PO Past History Travel History Traveled to [place] past 21 day No Medical History Neurological: NONE EENT: NONE Cardiovascular: hypertension, hyperlipidemia Respiratory: pulmonary embolism Gastrointestinal: GERD, hiatal hernia Hepatic: NONE Renal: NONE Musculoskeletal: osteoarthritis Psychiatric: NONE Endocrine: NONE Blood Disorders: NONE Cancer(s): NONE TOBACCO WEIGHER/Reproductive: NONE Surgical History Surgical History: none (s/p negative cardiac catheteri), cystoscopy, hernia repair-inguinal, hemorrhoidectomy polypectomy TURP Psychosocial History Who Do You Live With? spouse Services at Home: None Primary Language: Togolese Exam & Diagnostic Data Vital Signs and I&O Vital Signs Date Time Temp Pulse Resp B/P B/P Pulse O2 O2 Flow FiO2 Mean Ox Delivery Rate 09/18 1309 98.1 60 17 138/81 97 Room Air 09/18 1221 96 Room Air 09/18 1045 97.9 62 18 119/66 97 Room Air 09/18 0919 97 Room Air 09/18 0911 97.4 58 18 121/63 96 Nasal 2.0L Cannula Intake & Output 09/18 1600 09/18 0800 09/18 0000 09/17 1600 09/17 0800 09/17 0000 Intake Total Output Total Balance Patient 160 lb Weight Weight Reported by Patient Measurement Method Labs/Jethro Results: Laboratory Tests 09/18 0937 Chemistry Sodium (137 - 145 mmol/L) 142 Potassium (3.5 - 5.1 mmol/L) 4.6 Chloride (98 - 107 mmol/L) 106 Carbon Dioxide (22 - 30 mmol/L) 26 Anion Gap (5 - 16) 10 BUN (9 - 20 mg/dL) 23 H Creatinine (0.7 - 1.2 mg/dL) 0.7 Estimated GFR (>60 ml/min) > 60 BUN/Creatinine Ratio (7 - 25 %) 32.9 H Glucose (65 - 99 mg/dL) 91 Calcium (8.4 - 10.2 mg/dL) 9.0 Total Bilirubin (0.2 - 1.3 mg/dL) 0.7 AST (17 - 59 U/L) 16 L ALT (21 - 72 U/L) 27 Alkaline Phosphatase (< 127 U/L) 105 Troponin I (<0.11 ng/ml) < 0.01 Total Protein (6.3 - 8.2 g/dL) 6.6 Albumin (3.5 - 5.0 g/dL) 3.8 Globulin (1.9 - 4.2 gm/dL) 2.8 Albumin/Globulin Ratio (1.1 - 2.2 %) 1.4 Coagulation D-Dimer High Sensitivty (0 - 243 ng/ml) 284 H Hematology CBC w Diff NO MAN DIFF REQ WBC (4.8 - 10.8 /CUMM) 11.9 H RBC (4.70 - 6.10 /CUMM) 5.49 Hgb (14.0 - 18.0 G/DL) 16.4 Hct (42 - 52 %) 48.6 MCV (80.0 - 94.0 FL) 88.5 MCH (27.0 - 31.0 PG) 29.8 MCHC (33.0 - 37.0 G/DL) 33.7 RDW (11.5 - 14.5 %) 15.9 H Plt Count (130 - 400 /CUMM) 336 MPV (7.4 - 10.4 FL) 8.1 Gran % (42.2 - 75.2 %) 70.8 Lymphocytes % (20.5 - 51.1 %) 20.3 L Monocytes % (1.7 - 9.3 %) 6.1 Eosinophils % (0 - 5 %) 2.7 Basophils % (0.0 - 2.0 %) 0.1 Absolute Granulocytes (1.4 - 6.5 /CUMM) 8.5 H Absolute Lymphocytes (1.2 - 3.4 /CUMM) 2.4 Absolute Monocytes (0.10 - 0.60 /CUMM) 0.7 H Absolute Eosinophils (0.0 - 0.7 /CUMM) 0.3 Absolute Basophils (0.0 - 0.2 /CUMM) 0 Diagnostic Data CXR Results FINDINGS: There is mild cardiomegaly with normal pulmonary vascularity. Both lungs are expanded and clear. No gross bony abnormality seen. IMPRESSION: Mild cardiomegaly. No acute pulmonary process seen. Assessment/Plan Assessment/Plan Assessment: 1. Chest pain syndrome-in view of the patient's prior negative evaluation, I believe it is unlikely that the patient's symptoms are cardiac in nature, however, since he continues to have active chest discomfort of 6/10 in severity despite nitroglycerin, I believe it would be prudent to bring the patient in for 23 hour observation to better exclude underlying cardiac issues. 2. Hypertension 3. Hyperlipidemia 4. History of hiatal hernia 5. History of pulmonary embolus 6. Gallstones noted on abdominal CT 7. Extensive diverticulosis Recommendations: -23 hour observation -Serial troponins -Serial ECGs -GI cocktail to be given in the emergency room. -Further plans after the above Consult Acknowledgment - Thank you for your consult request.
[2017-09-18 14:16] VITALS: BP 130/66
[2017-09-18 14:21] VITALS: BP 122/60
[2017-09-18 21:47] VITALS: BP 118/70
[2017-09-19] MEDS ORDERED: ASPIRIN81 M4 PO (05:33)
--- NOTE | 2017-09-19 05:38 | Patient Discharge Instructions ---
Discharge Instructions General Discharge Information You were seen/treated for: Chest cruz Watch for these problems: Worsening chest pain, retrosternal discomfort or burning sensation, shortness of breath Special Instructions: 1. Please follow up with your site identification specialist with in a week, for further mnagement of chest pain. 2. Please follow up with your PCP within one week of discharge. 3. Please take medication as advised. 4. Please follow-up with your top collar maker Dr. Mayfield within 1 week of discharge for management of your hiatal hernia Diet Continue normal diet: No Recommended Diet: Heart Healthy Activity Full Activity/No Limits: No Activity Self Limited: Yes Acute Coronary Syndrome Inclusion Criteria At DC or during hospital stay patient has or had the following: ACS DIAGNOSIS No Discharge Core Measures Meds if any: Prescribed or Continued at Discharge Meds if any: NOT Prescribed or Continued at Discharge Congestive Heart Failure Inclusion Criteria At DC or during hospital stay patient has or had the following: CHF DIAGNOSIS No Discharge Core Measures Meds if any: Prescribed or Continued at Discharge Meds if any: NOT Prescribed or Continued at Discharge Cerebrovascular accident Inclusion Criteria At DC or during hospital stay patient has or had the following: CVA/TIA Diagnosis No Discharge Core Measures Meds if any: Prescribed or Continued at Discharge Meds if any: NOT Prescribed or Continued at Discharge Venous thromboembolism Inclusion Criteria VTE Diagnosis No VTE Type NONE VTE Confirmed by (Test) NONE Discharge Core Measures - Per Current guidelines, there needs to be overlap - treatment for the first 5 days of Warfarin therapy. - If discharged on Warfarin prior to 5 days of - overlap therapy, the patient will need to be - assessed for post discharge needs including - *Post discharge parental anticoagulation - *Warfarin and/or parental anticoagulation education - *Follow up date to check INR post discharge At least 5 days overlap therapy as Inpatient No Meds if any: Prescribed or Continued at Discharge Note: Overlap Therapy is Warfarin and Anticoagulant Meds if any: NOT Prescribed or Continued at Discharge
[2017-09-19 06:43] VITALS: BP 132/62
--- NOTE | 2017-09-19 08:35 | PN-Observation ---
Tom SOTO,[facility] 09/19/17 0835: Observation Note Observation Note _ I have personally examined VERENICE GRANADO. him disposition is uncertain at this time. Before a determination can be made, he requires continued observation for the following reasons [chest discomfort]. Assessment/Plan Medical Assessment: Patient is an 82-year-old male with multiple coronary artery disease risk factors including age, history of smoking, had extensive coronary artery disease workup in the past without any evidence of coronary artery disease presented yesterday with acute onset of chest pain. He was evaluated overnight and had negative serial troponins and EKG. His chest x-ray did not show any widening of the mediastinum and aortic dissection is unlikely. His d-dimer was 284 and is not suggestive of a pulmonary embolism as this is not markedly elevated. At this time his chest pain is improved and has a strong positional component on lying down. He has had numerous evaluations in the past that were negative for an acute coronary event. At this time he can be discharged with close follow-up with his straw hat brim cutter operator. He should also follow-up with primary care sales representative as his symptoms may be related to GERD/esophagitis. Problem 1. Chest pain * EKGs and troponins are negative for acute coronary event * We'll discuss with straw hat brim cutter operator and possibly discharge patient later today * Check an ECG and add on TSH to yesterday's lab work * Continue aspirin 2. Gastroesophageal reflux disease -history of hiatal hernia * Continue by mouth omeprazole 20 mg once a day Patient was already given GI cocktail without any benefit 3. Hypertension * We will continue his home medications include amlodipine, metoprolol, lisinopril * Watch for bradycardia Diet -heart healthy diet CODE STATUS -full code DVT prophylaxis-ANTHONY/heparin Problem List: 1. Chest pain at rest 2. Hypertension DVT/Prophylaxis: mechanical, pharmacological Subjective Follow-up For: Chest discomfort Complaints: chest discomfort on lying flat Tele-Events Since Last Visit: His Predicted. Heart Rate 49-60 Bpm. No Events. Subjective: Patient states that his chest discomfort is improved and rates it at about 5/10 intensity. He says that it is worse when he lies down and improves with his activity and moving around. He also complains of some pain on his right rib area as being going on for some months. He denies palpitations, lightheadedness or syncope or difficulty breathing. Denies abdominal pain, nausea vomiting or diaphoresis. He admits to some difficulty urinating from BPH and states that he has been evaluated by urologist before. Review of Systems Constitutional: Reports: see HPI. Objective Last 24 Hrs of Vital Signs/I&O Vital Signs Date Time Temp Pulse Resp B/P B/P Pulse O2 O2 Flow FiO2 Mean Ox Delivery Rate 09/19 0820 52 132/62 09/19 0643 97.4 52 12 132/62 94 Room Air 09/18 2147 98.3 58 24 118/70 94 09/18 1421 60 20 122/60 94 Room Air 09/18 1416 98.1 94 20 130/66 94 Room Air 09/18 1400 60 122/60 09/18 1400 60 122/60 09/18 1400 60 122/60 09/18 1309 98.1 60 17 138/81 97 Nasal 2.0L Cannula 09/18 1221 96 Room Air Intake & Output 09/19 1600 09/19 0800 09/19 0000 Intake Total 250 350 Output Total Balance 250 350 Intake, Oral 250 350 Physical Exam General Appearance: Alert, Oriented X3, Cooperative, No Acute Distress Skin: No Rashes Skin Temp/Moisture Exam: Warm/Dry HEENT: Atraumatic, PERRLA, EOMI, Mucous Membr. moist/pink Neck: Supple, No JVD, No thryomegaly Lymphatic: Cervical nl Cardiovascular: Regular Rate, Normal S1, Normal S2, No Murmurs Lungs: Clear to Auscultation, Normal Air Movement Abdomen: Normal Bowel Sounds, Soft, No Tenderness, No Hepatospenomegaly, No Masses Neurological: Normal Speech, Strength at 5/5 X4 Ext, Normal Tone, Cranial Nerves 3-12 NL Extremities: No Edema, Normal Pulses Vascular: Normal Pulses, Pulses Symmetrical Current Medications: Current Medications Sig/Ham Start time Last Medication Dose Route Stop Time Status Admin Amlodipine Besylate 10 MG DAILY 09/18 1244 AC 09/19 PO 0820 Aspirin 81 MG DAILY 09/19 1000 AC 09/19 PO 0820 Lisinopril 20 MG DAILY 09/18 1244 AC 09/19 PO 0820 Metoprolol Succinate 25 MG DAILY 09/18 1244 AC 09/19 PO 0820 Omeprazole 20 MG DAILY AC 09/19 0700 AC 09/19 PO 0627 Last 24 Hrs of Labs/Mics: Laboratory Tests 09/18/17 1812: Troponin I < 0.01, TSH Pending 09/18/17 1445: Troponin I < 0.01 Ирина Auguste 09/19/17 1440: Attending MD Review Statement Attending Statement Attending MD Statement: examined this patient, discuss w/resident/PA/ADVERTISING CONSULTANT, agreed w/resident/PA/ADVERTISING CONSULTANT, discussed with family, reviewed EMR data (avail), discussed w/ nursing Attending Assessment/Plan: Trop times 3 negative. Cardiology ok with pt being dced. Pt encouraged to watch his diet . Does not follow cardiac diet.
[2017-09-19 14:47] VITALS: BP 108/58
--- NOTE | 2017-09-19 14:47 | PN- Cardiology ---
Subjective Subjective: The patient is doing fine. Cardiac workup unrevealing. No significant residual discomfort. Out of bed without issues. Objective Vital Signs and I&Os Vital Signs Date Time Temp Pulse Resp B/P B/P Pulse O2 O2 Flow FiO2 Mean Ox Delivery Rate 09/19 0820 52 132/62 09/19 0643 97.4 52 12 132/62 94 Room Air 09/18 2147 98.3 58 24 118/70 94 Intake & Output 09/19 1600 09/19 0809/19 0000 09/18 1600 09/18 0809/18 0000 Intake Total 550 250 350 Output Total Balance 550 250 350 Intake, Oral 550 250 350 Patient 160 lb Weight Weight Reported by Patient Measurement Method Physical Exam: General Appearance Alert, Oriented X3, Cooperative, No Acute Distress Skin No Rashes, No Breakdown, No Significant Lesion Cardiovascular Normal S1, Normal S2, 1 to 2/6 systolic murmur Lungs Clear to Auscultation, Normal Air Movement Abdomen Soft, epigastric tenderness Neurological Normal Gait, Normal Speech, Strength at 5/5 X4 Ext Extremities No Clubbing, No Cyanosis, No Edema Vascular Normal Pulses, Pulses Symmetrical Current Medications: Current Medications Sig/Ham Start time Last Medication Dose Route Stop Time Status Admin Amlodipine Besylate 10 MG DAILY 09/18 1244 AC 09/19 PO 0820 Aspirin 81 MG DAILY 09/19 1000 AC 09/19 PO 0820 Lisinopril 20 MG DAILY 09/18 1244 AC 09/19 PO 0820 Metoprolol Succinate 25 MG DAILY 09/18 1244 AC 09/19 PO 0820 Omeprazole 20 MG DAILY AC 09/19 0700 AC 09/19 PO 0627 Results Last 48 Hrs of Labs/Mics: Laboratory Tests 09/18/17 1812: Troponin I < 0.01, TSH 0.674 09/18/17 1445: Troponin I < 0.01 09/18/17 0937: Anion Gap 10, Estimated GFR > 60, BUN/Creatinine Ratio 32.9 H, Glucose 91, Calcium 9.0, Total Bilirubin 0.7, AST 16 L, ALT 27, Alkaline Phosphatase 105, Troponin I < 0.01, Total Protein 6.6, Albumin 3.8, Globulin 2.8, Albumin/ Globulin Ratio 1.4, D-Dimer High Sensitivty 284 H, CBC w Diff NO MAN DIFF REQ, RBC 5.49, MCV 88.5, MCH 29.8, MCHC 33.7, RDW 15.9 H, MPV 8.1, Gran % 70.8, Lymphocytes % 20.3 L, Monocytes % 6.1, Eosinophils % 2.7, Basophils % 0.1, Absolute Granulocytes 8.5 H, Absolute Lymphocytes 2.4, Absolute Monocytes 0.7 H, Absolute Eosinophils 0.3, Absolute Basophils 0 Assessment/Plan Assessment/Plan Assessment: 1. Chest pain syndrome-in view of the patient's prior negative evaluation, I believe it is unlikely that the patient's symptoms are cardiac in nature, however, since he continues to have active chest discomfort of 6/10 in severity despite nitroglycerin, I believe it would be prudent to bring the patient in for 23 hour observation to better exclude underlying cardiac issues. 2. Hypertension 3. Hyperlipidemia 4. History of hiatal hernia 5. History of pulmonary embolus 6. Gallstones noted on abdominal CT 7. Extensive diverticulosis Recommendations: -23 hour observation completed with no evidence of cardiac issues -Serial troponins negative -Serial ECGs unchanged -GI cocktail given in the emergency room with minimal change in symptoms -At the moment, the patient's cardiac evaluations unrevealing. He is asymptomatic and ambulatory. I believe he can be safely discharged today for follow-up with Dr. Chambers as an outpatient. Continue telemetry? No
== END 2017-09-19 15:10 ==
LOC: ERH 08:59 → ERHI 12:00 → ENRESERV 12:53 → ENTRNSPT 13:48 → EDTRNSPTSTS 13:50 → 1NO 14:02 → CMPTRNSPT 14:14 → ENPENDDIS 09-19 14:58 → 1NO 09-19 15:10
PROVIDERS: Emergency Medicine
DX: R07.9 Chest pain, unspecified (principal); Z79.82 Long term (current) use of aspirin; I10 Essential (primary) hypertension; E78.5 Hyperlipidemia, unspecified; Z86.711 Personal history of pulmonary embolism; K57.90 Diverticulosis of intestine, part unspecified, without perforation or abscess without bleeding; Z87.891 Personal history of nicotine dependence; K21.9 Gastro-esophageal reflux disease without esophagitis; M19.90 Unspecified osteoarthritis, unspecified site; K80.20 Calculus of gallbladder without cholecystitis without obstruction
CPT/HCPCS: 36592; 71045; 93005; 93010; 99291; G0378; J3490